=== PATIENT | male | born 1950 | race Caucasian/White ===

== ENCOUNTER 2017-07-25 08:38 | Day surgery (SDC) | payer MEDICARE, OTHER ==
[2017-07-18 15:29] VITALS: BMI 33.0
[~2017-07-25 08:38] MED LIST: ALPRAZolam 0.25 MG TAB PO PRN; ALPRAZolam 0.5 MG TAB PO PRN; ASPIRIN 325 MG TAB PO STA; ATORVASTATIN 80 MG TAB PO STA; SODIUM CHLORIDE 0.9% 1,000 ML in EMPTY BAG 1 BAG IV ONE
[2017-07-25 09:02] VITALS: TEMP 98
[2017-07-25] MEDS ORDERED: MIDAZOLAM 2 MG/2 ML VIAL IVP ONE (10:28)
[2017-07-25] MEDS ORDERED: LIDOCAINE 2% INJ 20 MG/ML SQ ONE (10:29)
[2017-07-25] MEDS: VERAPAMIL SYRINGE (5 MG/10 ML) INTRAARTER ONE ×2 (10:29→11:38)
[2017-07-25] MEDS ORDERED: LIDOCAINE 2% INJ 20 MG/ML (20 ML MDV) ONE (11:17)
[2017-07-25] MEDS ORDERED: HEPARIN SODIUM 1,000 UN/ML (10ML VL) ONE (11:17)
[2017-07-25] MEDS ORDERED: VERAPAMIL 2.5 MG/ML 2 ML AMP ONE (11:17)
[2017-07-25] MEDS ORDERED: MIDAZOLAM 2 MG/2 ML VIAL ONE (11:17)
[2017-07-25] MEDS ORDERED: IOPAMIDOL-370 125ML BTL INJ ONE (11:39)
[2017-07-25] MEDS ORDERED: RX INFO: IV CONTRAST WAS GIVEN 1 EACH MISC MISCELLANE PRN (11:43)
[2017-07-25] MEDS ORDERED: SODIUM CHLORIDE 0.9% 1,000 ML IV SCH (11:45)
--- NOTE | 2017-07-25 12:02 | LTR ---
DATE OF SERVICE: 07/25/2017 RE: Ye Reina Dear Dr. Noe; Mr. Ye Reina was experiencing intermittent episodes of chest discomfort concerning for angina. As you know, he has history of coronary artery disease and prior stenting of the mid LAD that was performed in 2001. He underwent heart catheterization and that revealed patent stent in the LAD without any significant residual coronary artery disease in the RCA or left circumflex. I want to thank you for allowing us to participate in his care and please do not hesitate to call if you have any question or concern. Sincerely, Marcin Brock MD MMNOMANL / WILMERN: [id number] /
--- NOTE | 2017-07-25 12:14 | CC ---
CARDIAC CATHETERIZATION REPORT DATE OF SERVICE: 07/25/2017 PERFORMING PHYSICIAN: Marcin Brock MD, Braider Tender. PROCEDURE PERFORMED: 1. Selective right and left coronary angiogram. 2. Left heart catheterization. INDICATION: This is a pleasant 66-year-old gentleman with known history of coronary artery disease and prior stenting of the LAD, who was experiencing intermittent episodes of chest discomfort concerning for angina. In view of that, heart catheterization was recommended. APPROACH: Right radial artery. COMPLICATION: None. LEVEL OF SEDATION: Moderate with sedation length of 13 minutes. PROCEDURE DESCRIPTION: After obtaining an informed consent, the patient was brought to the [facility]. The right radial artery was cannulated using micropuncture technique. The micropuncture wire passed easily, then I placed a 6-Thai sheath in the right radial artery. After that, I did selective right and left coronary angiogram using JR4 and JL3.5 catheters. After that I did left heart catheterization using 6-Thai pigtail catheter. The procedure was completed without any complication. SELECTIVE CORONARY ANGIOGRAM: 1. The right coronary artery is a medium caliber vessel and it is a dominant vessel. The RCA is angiographically normal. It bifurcates into PDA and PLV branches, both are angiographically normal. The left main is angiographically normal. It bifurcates into the left circumflex and left anterior descending artery. 2. The left circumflex is a large caliber vessel. It is a nondominant vessel with the proximal circ is angiographically normal. The mid circ is normal and gives rise into 2 obtuse marginal branches. The first OM branch is a medium caliber vessel, seems to be angiographically normal. The second OM branch is a large caliber vessel, seems to be angiographically normal and the circ continued after that as a small-caliber vessel in the AV groove. 3. The LAD, the proximal LAD is angiographically normal. The mid LAD is stented and the stent is patent. The LAD distally is angiographically normal. HEMODYNAMICS: The left ventricular end-diastolic pressure appeared to be 12 mmHg and no gradient was seen across the aortic valve. CONCLUSION: 1. Normal coronary angiogram. 2. Patent stent in the mid left anterior descending artery. POSTPROCEDURE MANAGEMENT: Maximize medical treatment and follow up with the patient. MMODL / IJN: [id number] /
[2017-07-25 13:08] VITALS: BP 111/59; PULSE 68; RESP 18
== END 2017-07-25 16:55 | disposition home or self-care (01) ==
LOC: CATHCVL 08:38
PROVIDERS: ATTEND Internal Medicine Interventional Cardiology
DX: R07.89 Other chest pain (principal); I25.10 Atherosclerotic heart disease of native coronary artery without angina pectoris; Z95.5 Presence of coronary angioplasty implant and graft; I10 Essential (primary) hypertension; E78.00 Pure hypercholesterolemia, unspecified; Z79.82 Long term (current) use of aspirin; Z79.899 Other long term (current) drug therapy; Z88.8 Allergy status to other drugs, medicaments and biological substances
CPT/HCPCS: 93458; C1894; J2001; J2250; J1644; Q9967

== ENCOUNTER → 2018-06-22 | Outpatient (CLI) | payer MEDICARE ==
--- NOTE | 2018-06-22 16:22 | MR ---
MRI CERVICAL SPINE: CLINICAL HISTORY: Cervicalgia and cervical disc disease per order. TECHNIQUE: Multiplanar, multisequence imaging of the cervical spine is performed without IV contrast. COMPARISON: MRI cervical spine January 04, 2013. FINDINGS: Sagittal images of the cervical spine show the craniocervical junction to remain within nor mal limits. The cervical and upper thoracic spinal cord remains normal in caliber and signal. There is stable grade 1 retrolisthesis of C5 on C6. The vertebral body heights remain normal. There is sta ble moderate disc space narrowing with mild to moderate anterior spurring C5-C6 and C6-C7 levels. The bone marrow signal intensity is within normal limits. Axial images at C2-C3 level show uncovertebral facet degenerative changes bilaterally causing mild-to -moderate bilateral neural foraminal narrowing. No significant change from prior. Axial images at C3-C4 level show uncovertebral facet degenerative changes bilaterally along with broa d-based right paracentral disc protrusion. There is effacement of the anterior thecal sac. There is m oderate to advanced bilateral neural foraminal narrowing at this level identified. No significant deloris nge from prior. Axial images at the C4-C5 level show uncovertebral facet degenerative changes bilaterally with right foraminal disc protrusion. There is moderate to advanced right-sided neural foraminal narrowing and m ild left-sided neural foraminal narrowing noted. No significant change from prior. Axial images at C5-C6 level show spondylolisthesis with uncovertebral facet degenerative changes and broad-based posterior spur disc complex, there is effacement of the anterior thecal sac and moderate to advanced left-sided neural foraminal narrowing, there is mild right-sided neural foraminal narrowi ng seen. Some progression from prior study noted. Axial images at C6-C7 level show broad-based posterior disc protrusion effacing anterior thecal sac a nd causing [id number] bilateral neural foraminal narrowing. Axial images at C7-T1 level are felt within normal limits. IMPRESSION: Multilevel degenerative changes as detailed above with some progression at C5-C6 level no alison from prior.
== END | disposition home or self-care (01) ==
LOC: RADMRIMAIN 15:32
PROVIDERS: ATTEND Orthopaedic Surgery Orthopaedic Surgery of the Spine
DX: M47.22 Other spondylosis with radiculopathy, cervical region (principal); R51 Headache
CPT/HCPCS: 72141

== ENCOUNTER → 2019-01-25 | Outpatient (CLI) | payer MEDICARE ==
--- NOTE | 2019-01-25 08:00 | MR ---
EXAMINATION TYPE: MR knee RT wo con DATE OF EXAM: 01/25/2019 COMPARISON: NONE HISTORY: Pain in right knee / Osteoarthritis TECHNIQUE: Multiplanar, multisequence images of the knee is performed without IV contrast. FINDINGS: MEDIAL MENISCUS: Anterior horn is intact without tear. Posterior horn is truncated diminished in size to anterior horn consistent with significant tear. Medial extrusion of medial meniscus coronal image 20. LATERAL MENISCUS: Anterior horn is intact without tear. Some oblique signal posterior horn appears to extend to the inferior articular surface sagittal image 25. Vertical increased signal appears to ext end to articular surface centrally. CRUCIATE LIGAMENTS: The posterior cruciate ligament is intact and unremarkable. Anterior cruciate lig ament shows marked increased signal but some fibers are intact on coronal images. COLLATERAL LIGAMENTS: The medial collateral ligament and lateral collateral ligament complex are inta ct and unremarkable. EXTENSOR MECHANISM: Visualized quadriceps and patellar tendons are intact. EFFUSION: Moderate size suprapatellar joint effusion. POPLITEAL CYST: No popliteal/cortez cyst. TRICOMPARTMENT SPACES: Moderate to severe narrowing with mild to moderate spurring patellofemoral com partment. Moderate narrowing and spurring medial and lateral tibiofemoral compartments most prominent medially. CARTILAGE: Chondromalacia patella with thinning of articular cartilage along posterior patellar pole fairly diffusely. Thinning and full-thickness cartilaginous loss medial tibiofemoral compartment. BONE MARROW SIGNAL: There is some heterogeneous increased T2 signal along the posterior aspect of the patellar pole. There is some heterogeneous diminished T1 and increased T2 signal medial tibial femor al compartment. OTHER: No additional significant abnormality is appreciated. IMPRESSION: 1. Moderate to severe tricompartment degenerative changes most prominent patellofemoral and medial ti biofemoral compartments as detailed above with areas of significant cartilaginous loss and reactive b aaron changes present. 2. Moderate-sized suprapatellar joint effusion. 3. Complex full-thickness tear posterior horn medial meniscus. 4. Oblique full-thickness tear suspected posterior horn lateral meniscus. Vertical tear central body lateral meniscus. 5. Myxoid degeneration/partial tear ACL. No full thickness tear evident.
== END | disposition home or self-care (01) ==
LOC: RADMRIMAIN 06:47
PROVIDERS: ATTEND Orthopaedic Surgery Orthopaedic Surgery of the Spine
DX: M17.11 Unilateral primary osteoarthritis, right knee (principal); S83.8X1A Sprain of other specified parts of right knee, initial encounter; M48.02 Spinal stenosis, cervical region; M50.322 Other cervical disc degeneration at C5-C6 level; M19.031 Primary osteoarthritis, right wrist; S63.501D Unspecified sprain of right wrist, subsequent encounter

== ENCOUNTER → 2019-06-25 | Outpatient (CLI) | payer MEDICARE ==
[2019-06-25 10:41] LABS: Appearance,Urine Clear (Clear); Bilirubin,Urine Negative (Negative); Blood,Urine Negative (Negative); Color,Urine Light Yellow; Glucose,Urine (UA) Negative (Negative); Ketones,Urine Negative (Negative); Leukocyte Esterase,Urine Negative (Negative); Nitrite,Urine Negative (Negative); Protein,Urine Negative (Negative); Specific Gravity,Urine 1.009 (1.001-1.035); Urobilinogen,Urine <2.0 mg/dL (<2.0)
[2019-06-25 10:54] LABS: ALT 20 U/L (4-49); AST 25 U/L (17-59); African American GFR (CKD) >90 (>60 ml/min/1.73 sqM); Albumin 4.5 g/dL (3.5-5.0); Alkaline Phosphatase 91 U/L (38-126); Anion Gap 12 mmol/L; Blood Urea Nitrogen 11 mg/dL (9-20); Calcium 9.5 mg/dL (8.4-10.2); Carbon Dioxide 24 mmol/L (22-30); Chloride 97 mmol/L (98-107); Glucose 94 mg/dL (74-99); Non-African American GFR(CKD) >90 (>60 ml/min/1.73 sqM); Partial Thromboplastin Time 24.1 sec (22.0-30.0); Potassium 4.8 mmol/L (3.5-5.1); Sodium 133 mmol/L (137-145); Total Protein 7.3 g/dL (6.3-8.2)
[2019-06-25 11:28] LABS: Basophils % (A) 1 %; Eosinophils # (A) 0.3 k/uL (0-0.7); Eosinophils % (A) 4 %; HGB 14.5 gm/dL (13.0-17.5); Lymphocytes # (A) 0.9 k/uL (1.0-4.8); Lymphocytes % (A) 12 %; MCH 32.2 pg (25.0-35.0); MCHC 33.8 g/dL (31.0-37.0); MCV 95.3 fL (80.0-100.0); Mean Platelet Volume 7.2; Monocytes # (A) 0.4 k/uL (0-1.0); Monocytes % (A) 6 %; Neutrophils # (A) 5.9 k/uL (1.3-7.7); Neutrophils % (A) 76 %; Platelet Count 224 k/uL (150-450); RBC 4.51 m/uL (4.30-5.90); RDW 12.9 % (11.5-15.5); WBC 7.7 k/uL (3.8-10.6)
== END | disposition home or self-care (01) ==
LOC: LABPAT 09:50
PROVIDERS: ATTEND Orthopaedic Surgery
DX: Z01.812 Encounter for preprocedural laboratory examination (principal); M16.11 Unilateral primary osteoarthritis, right hip; Z51.81 Encounter for therapeutic drug level monitoring
CPT/HCPCS: 80053; 81003; 85025; 85610; 85730; 87070

== ENCOUNTER 2019-07-06 09:58 | Day surgery (SDC) | payer MEDICARE ==
[2019-06-29 16:04] VITALS: BMI 33.7
[~2019-07-06 09:58] MED LIST changes: +ACETAMINOPHEN TAB 500 MG TAB PO ONE; -ALPRAZolam 0.25 MG TAB PO PRN; -ALPRAZolam 0.5 MG TAB PO PRN; -ASPIRIN 325 MG TAB PO STA; -ATORVASTATIN 80 MG TAB PO STA; +DEXAMETHASONE SOD PHOSPHATE 10 MG/ML 1 ML VIAL IV ONE; +GABAPENTIN 300 MG CAP PO ONE; +HYDROmorphone 0.5 MG/0.5 ML SYRINGE IVP PRN; +MELOXICAM 7.5 MG TAB PO ONE; +MIDAZOLAM 2 MG/2 ML VIAL IV PRN; +ONDANSETRON 4 MG/2 ML VIAL IVP ONE; +ROPIVACAINE 246.25 MG, EPINEPHrine 0.5 MG, KETOROLAC 30 MG, cloNIDine HCL/PF 80 MCG, WA... MISCELLANE ONE; -SODIUM CHLORIDE 0.9% 1,000 ML in EMPTY BAG 1 BAG IV ONE; +TRANEXAMIC ACID 1,000 MG in SODIUM CHLORIDE 0.9% 100 ML IVPB ONE
[2019-07-06] MEDS: LACTATED RINGERS 1,000 ML IV SCH ×2 (10:42→15:57)
[2019-07-06] MEDS ORDERED: MIDAZOLAM 2 MG/2 ML VIAL IV ONE (11:00)
[2019-07-06] MEDS ORDERED: fentaNYL (PF) 50 MCG/ML 2 ML AMP IV ONE (11:00)
[2019-07-06] MEDS ORDERED: SODIUM CHLORIDE 0.9% 100 ML BAG ONE (11:48)
[2019-07-06] MEDS ORDERED: PROPOFOL 10 MG/ML 20 ML VIAL IV ONE (11:48)
[2019-07-06] MEDS ORDERED: MIDAZOLAM 2 MG/2 ML VIAL ONE (11:48)
[2019-07-06] MEDS ORDERED: diphenhydrAMINE 50 MG/ML 1 ML VIAL ONE (11:48)
[2019-07-06] MEDS ORDERED: TRANEXAMIC ACID 1,000 MG/10 ML VIAL ONE (11:48)
[2019-07-06] MEDS ORDERED: fentaNYL (PF) 50 MCG/ML 2 ML AMP ONE (11:48)
[2019-07-06] MEDS ORDERED: KETAMINE 10 MG/ML 20 ML VIAL ONE (11:48)
[2019-07-06] MEDS ORDERED: LACTATED RINGERS 1,000 ML IV ONE (12:17)
[2019-07-06] MEDS ORDERED: ceFAZolin 3,000 MG in SODIUM CHLORIDE 0.9% IRRIGATIO 3,000 ML IRRIGATION ONE (12:17)
--- NOTE | 2019-07-06 13:04 | P.OP ---
Date of Procedure: 07/06/19 Preoperative Diagnosis: Severe osteoarthritis right knee Postoperative Diagnosis: Severe osteoarthritis right knee Procedure(s) Performed: Right total knee arthroplasty Implants: Gallegos [employer] Journey II CR Oxinium cruciate retaining femoral component size 8, right [employer] Journey right nonporous tibial baseplate size 7 [employer] Journey II, XLPE CR articular insert, size 9 mm, Size 7-8 right [employer] Journey BCS resurfacing oval patellar component, 32 mm All components were cemented using Palacos R bone cement.. The articulation is Oxinium on polyethylene. Anesthesia: spinal Surgeon: Mata Harper Test Engineer #1: Jelani Mejia Estimated Blood Loss (ml): 50 Pathology: other (Bone and cartilage) Condition: stable Disposition: PACU Indications for Procedure: After failure of conservative treatment we discussed the surgical and nonsurgical treatment options at length. Patient wishes to proceed with a total knee arthroplasty. Complications specific to this procedure were discussed at length, including but not limited to infection, bleeding, stiffness, and nerve injury. Patient is aware of all these complications and informed consent was obtained Operative Findings: The operative findings are consistent with severe osteoarthritis of the right knee Description of Procedure: Patient was seen in the preoperative area consent was reviewed and operative site was marked with a skin marker. An adductor canal pain catheter was placed by anesthesia in the preoperative area. Patient was then brought to the operating room and given preoperative antibiotics intravenously. A spinal anesthetic was administered by the anesthesia department. A tourniquet was placed on the upper thigh and the lower extremity was prepped and draped in usual sterile fashion. A gram of transexamic acid was given. A universal timeout was then performed which confirmed the patient's name, surgical site, ALLERGIES, and consent. The lower extremity was then exsanguinated and tourniquet was inflated to 250 mmHg. A standard and anterior midline approach to the knee was performed. The skin and subcutaneous tissue was dissected down to the patellar tendon. A medial parapatellar arthrotomy was then performed. The knee was then extended, the patellar was everted, and the knee was again flexed. The patellar fat pad was removed in order to enhance exposure. Anterior horns of both menisci were excised, and a release was performed to the posterior medial aspect of the knee. On gross visual inspection, there was complete loss of articular cartilage in the medial and patellofemoral joint spaces. There was also significant cartilage damage in the lateral compartment. There were multiple periarticular osteophytes which were then removed with a Ronguer. The femoral canal was then opened with the 9.5 mm intramedullary drill. The 8 mm intramedullary jasiel was then inserted into the femoral canal. The distal femoral cutting guide was then placed and set for 5 of valgus. The distal femoral cutting block was then pinned in place. The intramedullary jasiel was then removed, and the distal femur was then cut. The cutting block was then removed and the cut was checked for symmetry. Next, the sizing guide was then placed and set for 3 external rotation based off of the epicondylar axis and Whitesides line. Pins were then placed and the drill holes, and the femur was sized with the sizing stylus. The pins were then removed, and the sizing guide was then removed. The spikes of the femoral block was then placed into the predrilled holes, and malleted into place. Two 45 mm pins were then placed into the fixation holes on the cutting block. An yolette wing was then used to ensure there would be no notching with the anterior cut. The anterior condyles were cut without notching. The anterior cord cut was then performed, followed by the posterior cut, posterior chamfer cut, and the anterior chamfer cut. The collateral ligaments were protected during the entire process. The cutting block was then removed, and the femoral canal was plugged with autologous bone. Attention was then directed to the tibia. The remaining ACL was removed with a Ronguer, and the tibia was then gently subluxed forward with a large bent knee retractor. Any remaining menisci was excised. The posterior lateral corner was cauterized in order to cauterize the lateral geniculate artery. The extra medullary tibial cutting guide was then placed, set for the appropriate rotation, slope, and depth of resection. The proximal tibia cutting guide was then pinned in place. Proximal tibia was then cut and sized. Next trials were then placed with the appropriate-sized insert. The knee was able to fully extend and flex to 130 and was stable throughout all range of motion. The knee was then extended, patella everted. Patella was then measured, and then using an osteotomy guide, the patella was cut at the appropriate level. The patella was then measured and drilled and the patella trial was then placed. The knee was then taken through range of motion with the patella trial and the patella tracked normally. The knee was then extended patella trial was then removed and the patella was everted. Knee was then flexed and lug holes were drilled through the femoral trial and the femoral trial was then removed. The tibial was then exposed, and the tibial broach guide was then pinned in place after it was set for the appropriate rotation to allow for the most coverage without overhang. The tibia was then reamed and broached. The cut surfaces of bone were then irrigated with pulsatile lavage. The posterior structures were injected with the ropivacaine solution. The knee was also irrigated with Irrisept solution. The components were then opened, the cement was mixed, and the components were then cemented in place. The cement was allowed to harden with the knee in full extension. While the cement was hardening, the remaining soft tissues were then injected with a ropivacaine solution, which consisted of 246.25 mg of ropivacaine, 0.5 mg of epinephrine, 30 mg of Toradol, 80 g of clonidine, and 48.45 mL of sterile water, for a total of 100 mL of fluid injected. After the cemented hardened. The tourniquet was released, and hemostasis was obtained. A second gram of transexamic acid was given. The knee was again irrigated. The knee was again taken through range of motion and found to be stable throughout all range of motion of 0-130, and the patella tracked normally. The fascia was then closed with #2 strata fix suture. The subcutaneous tissue was closed with 3-0 Vicryl and 3-0 strata fix. Dermabond glue was used for the skin and placed with the knee in flexion. The patient was placed in a sterile silver dressing. Patient was then transferred to recovery room in stable condition. The assistant real estate manager MARIANO Anand was required due the complexity surgery and the need for a skilled salesperson surgical appliances. She assisted in positioning, draping, retraction, and closure of the wound.
[2019-07-06] MEDS ORDERED: HYDROmorphone 0.5 MG/0.5 ML SYRINGE IVP PRN ×2 (14:02)
[2019-07-06] MEDS ORDERED: NALOXONE 0.4 MG/ML 1 ML VIAL IV PRN (14:02)
[2019-07-06] MEDS ORDERED: ONDANSETRON 4 MG/2 ML VIAL IVP PRN (14:02)
[2019-07-06] MEDS ORDERED: hydrOXYzine PAMOATE 25 MG CAP PO PRN (14:02)
[2019-07-06] MEDS ORDERED: ROPIVACAINE 0.2%-NS ON-Q PUMP 1,090 MG, EMPTY PAIN BALL 1 EACH MISCELLANE PRN (14:16)
--- NOTE | 2019-07-06 14:32 | XR ---
EXAMINATION TYPE: XR knee limited RT DATE OF EXAM: 07/06/2019 CLINICAL HISTORY: Right knee pain and arthritis status post total knee replacement. TECHNIQUE: Portable AP and crosstable lateral views of the right knee are obtained immediately posto peratively. COMPARISON: None FINDINGS: Metallic hardware from total right knee arthroplasty is seen and appears satisfactory in a lignment and position. There is evidence of recent surgery with diffuse subcutaneous gas and soft ti ssue swelling noted. IMPRESSION: METALLIC HARDWARE FROM TOTAL RIGHT KNEE ARTHROPLASTY IS SATISFACTORY IN ALIGNMENT.
--- NOTE | 2019-07-06 15:36 | P.ANPRN ---
Procedure Note - Anesthesia - Nerve Block Performed Right Adductor Canal Infusion Time Out Performed: Yes (1059) Date of Procedure: 07/06/19 Procedure Start Time: 10:59 Procedure Stop Time: 11:06 Location of Patient: PreOp Indication: Acute Post-Operative Pain, Requested by Surgeon Specifically requested for management of pain by DrGriselda: Mata Harper Sedation Type: Sedate with meaningful contact maintained Preparation: Sterile Prep Position: Supine Catheter Depth at Skin (cm): 9 Catheter: Indwelling Needle Types: Pajunk Needle Gauge: 18 Ultrasound used to visualize needle placement: Yes Ultrasound used to observe medication spread: Yes Injectate: 0.5% Ropivacaine (see comment for volume) (20cc) Blood Aspirated: No Pain Paresthesia on Injection Noted: No Resistance on Injection: Normal Image Stored and Saved: Yes Events: Uneventful and Well Tolerated
[2019-07-06] MEDS: HYDROmorphone 0.5 MG/0.5 ML SYRINGE IVP PRN ×2 (16:00→19:47)
[2019-07-06] MEDS: HYDROcodone/APAP 5-325MG 1 EACH TAB PO PRN (17:27)
[2019-07-06] MEDS: ASPIRIN 325 MG TAB PO SCH (20:48)
[2019-07-06] MEDS ORDERED: SENNOSIDES-DOCUSATE SODIUM 1 EACH TAB PO SCH (21:00)
[2019-07-07] MEDS: HYDROmorphone 0.5 MG/0.5 ML SYRINGE IVP PRN (02:40)
[2019-07-07] MEDS: LACTATED RINGERS 1,000 ML IV SCH ×3 (02:40→07:05)
[2019-07-07] MEDS: HYDROcodone/APAP 5-325MG 1 EACH TAB PO PRN ×2 (06:19→12:14)
[2019-07-07] MEDS: ASPIRIN 325 MG TAB PO SCH (07:08)
[2019-07-07 07:24] LABS: Basophils % (A) 0 %; Eosinophils % (A) 0 %; HGB 11.7 gm/dL (13.0-17.5); Lymphocytes # (A) 0.8 k/uL (1.0-4.8); Lymphocytes % (A) 7 %; MCH 31.7 pg (25.0-35.0); MCHC 32.4 g/dL (31.0-37.0); MCV 97.8 fL (80.0-100.0); Mean Platelet Volume 7.5; Monocytes # (A) 0.6 k/uL (0-1.0); Monocytes % (A) 5 %; Neutrophils # (A) 9.9 k/uL (1.3-7.7); Neutrophils % (A) 86 %; Platelet Count 182 k/uL (150-450); RBC 3.68 m/uL (4.30-5.90); RDW 12.8 % (11.5-15.5); WBC 11.5 k/uL (3.8-10.6)
[2019-07-07 08:25] VITALS: BP 161/92; PULSE 70; RESP 18; TEMP 98
--- NOTE | 2019-07-07 09:03 | P.DS ---
Providers Attending physician: Mata Harper Primary care physician: [facility] Course: This is a []-year-old [] who was last seen with complaint of continued right knee pain. The patient has a known history of degenerative arthritis of the right knee and presents to discuss surgical options. After discussion and consideration the patient elects to proceed with total right knee arthroplasty. The patient is seen preoperatively by [] and cleared for surgery. The patient is admitted to [facility] for total right knee arthroplasty. The procedures performed without complication or sequelae. Patient is doing well postoperatively. Vital signs are stable at discharge. Labs are stable at discharge. the patient is ambulating well with walker with minimal assistance. The patient is discharged to home on postop day #[] pending medical clearance. Please see orders and refer to the [facility] rec for accurate list of medications. Patient Condition at Discharge: Fair Plan - Discharge Summary Discharge Rx Participant: No New Discharge Prescriptions: New Rivaroxaban [Xarelto] 10 mg PO DAILY 35 Days #35 tab Hydrocodone/Acetaminophen [Elgin 5-325] 1 - 2 tab PO Q6H PRN #40 tab PRN Reason: Pain No Action Metoprolol Tartrate 25 mg PO BID amLODIPine [Norvasc] 5 mg PO DAILY Triamterene/Hydrochlorothiazid [Maxzide 37.5-25] 1 tab PO DAILY Lisinopril [Prinivil] 20 mg PO DAILY Atorvastatin [Lipitor] 40 mg PO DAILY Sertraline [Zoloft] 200 mg PO DAILY LORazepam [Ativan] 1 mg PO TID clonazePAM [KlonoPIN] 0.5 mg PO HS Gabapentin [Neurontin] 300 mg PO BID Aspirin [Adult Low Dose Aspirin EC] 81 mg PO DAILY Discharge Medication List Atorvastatin [Lipitor] 40 mg PO DAILY 01/05/15 [History] LORazepam [Ativan] 1 mg PO TID 01/05/15 [History] Lisinopril [Prinivil] 20 mg PO DAILY 01/05/15 [History] Metoprolol Tartrate 25 mg PO BID 01/05/15 [History] Sertraline [Zoloft] 200 mg PO DAILY 01/05/15 [History] Triamterene/Hydrochlorothiazid [Maxzide 37.5-25] 1 tab PO DAILY 01/05/15 [History] amLODIPine [Norvasc] 5 mg PO DAILY 01/05/15 [History] Aspirin [Adult Low Dose Aspirin EC] 81 mg PO DAILY 06/29/19 [History] Gabapentin [Neurontin] 300 mg PO BID 06/29/19 [History] clonazePAM [KlonoPIN] 0.5 mg PO HS 06/29/19 [History] Hydrocodone/Acetaminophen [Elgin 5-325] 1 - 2 tab PO Q6H PRN #40 tab 07/07/19 [Rx] Rivaroxaban [Xarelto] 10 mg PO DAILY 35 Days #35 tab 07/07/19 [Rx] Follow up Appointment(s)/Referral(s): Juan Francisco Noe MD [Primary Care Provider] - 1 Week Mata Harper DO [Doctor of Osteopathic Medicine] - 07/21/19 9:45 am Activity/Diet/Wound Care/Special Instructions: Weight-bear as tolerated on your operative leg. Use a walker for ambulation. Keep Optifoam dressing in place for 7-10 days. May shower over dressing. Take pain medications as prescribed. Xarelto for DVT prophylaxis due to history of pulmonary embolism. Follow-up with Dr. Harper in the office in two weeks. Call the office with any questions or concerns, Discharge Disposition: HOME WITH HOME HEALTH SERVICES
--- NOTE | 2019-07-07 11:21 | P.PN ---
Progress Note - Text Progress Note Date: 07/07/19 Postoperative day # 1 status post total knee arthroplasty, on adductor canal perineural catheter placed for postoperative analgesia. Ropivacaine 0.2% 10 mL per hour through ON-Q pump continuous infusion. Pain is well controlled. On visual analog scale 3/10 Patient is taking PRN oral pain medications. Catheter site: Looks Ok. There is no erythema or tenderness. Continue with the current pain management plan and will follow.
== END 2019-07-07 13:06 | disposition home health service (06) ==
LOC: OR 09:58 → 4SSUR 14:40 → OR 07-07 13:06
PROVIDERS: ATTEND Orthopaedic Surgery
DX: M17.11 Unilateral primary osteoarthritis, right knee (principal); I25.10 Atherosclerotic heart disease of native coronary artery without angina pectoris; I10 Essential (primary) hypertension; E78.5 Hyperlipidemia, unspecified; G43.909 Migraine, unspecified, not intractable, without status migrainosus; Z79.82 Long term (current) use of aspirin; Z98.890 Other specified postprocedural states; Z79.899 Other long term (current) drug therapy; Z87.11 Personal history of peptic ulcer disease; Z86.711 Personal history of pulmonary embolism; Z86.73 Personal history of transient ischemic attack (TIA), and cerebral infarction without residual deficits; Z88.8 Allergy status to other drugs, medicaments and biological substances; Z95.5 Presence of coronary angioplasty implant and graft
CPT/HCPCS: 97161; 64448; 76942; 85025; 88300; 73560; 27447; C1713; C1776; J2250; J0171; J1100; J0690 ×3; J2405; J3010; J1885; J2795 ×2; J0735; J1170 ×2

== ENCOUNTER → 2022-08-16 | Outpatient (CLI) | payer MEDICARE ==
[2022-08-16 09:47] LABS: Partial Thromboplastin Time 25.1 sec (22.0-30.0); Prothrombin Time 10.5 sec (9.0-12.0)
[2022-08-16 15:44] LABS: HCT 36.3 % (39.6-50.0); MCH 31.1 pg (27.0-32.0); MCHC 33.1 g/dL (32.0-37.0); Mean Platelet Volume 9.9 fL (9.5-12.2); NRBC Per 100 WBC 0 /100 WBCS (0.0-0.0); Platelet Count 212 X 10*3/uL (140-440); RBC 3.86 X 10*6/uL (4.40-5.60); RDW 12.9 % (11.5-14.5); WBC 6.76 X 10*3/uL (4.50-10.00)
[2022-08-16 16:03] LABS: African American GFR (CKD) 87.4 (60.0-200.0); Albumin 4.5 g/dL (3.8-4.9); Albumin/Globulin Ratio 2.14 (1.60-3.17); Anion Gap 12.8 mmol/L (10.00-18.00); Calcium 10.1 mg/dL (8.7-10.3); Carbon Dioxide 22.2 mmol/L (20.0-27.5); Globulin 2.1 g/dL (1.6-3.3); Non-African American GFR(CKD) 75.4 (60.0-200.0); Potassium 4.5 mmol/L (3.5-5.5); Total Bilirubin 0.4 mg/dL (0.30-1.20); Total Protein 6.6 g/dL (6.2-8.2)
[2022-08-16 17:57] LABS: Appearance,Urine Clear (Clear); Bilirubin,Urine Negative (Negative); Blood,Urine Negative (Negative); Color,Urine Yellow (Yellow); Ketones,Urine Negative (Negative); Nitrite,Urine Negative (Negative); Specific Gravity,Urine 1.021 (1.001-1.030); Urobilinogen,Urine 0.2 (0.2,1.0)
== END | disposition home or self-care (01) ==
LOC: LABPAT 08:50
PROVIDERS: ATTEND Orthopaedic Surgery
DX: Z01.812 Encounter for preprocedural laboratory examination (principal)
CPT/HCPCS: 80053; 81003; 85027; 85610; 85730; 87070

== ENCOUNTER 2022-08-27 05:36 | Observation (INO) | payer MEDICARE ==
[2022-08-23 11:11] VITALS: BMI 30.8
[~2022-08-27 05:36] MED LIST changes: -ACETAMINOPHEN TAB 500 MG TAB PO ONE; +ACETAMINOPHEN TAB 500 MG TAB PO PRN; -DEXAMETHASONE SOD PHOSPHATE 10 MG/ML 1 ML VIAL IV ONE; -GABAPENTIN 300 MG CAP PO ONE; +GABAPENTIN 300 MG CAP PO PRN; -HYDROmorphone 0.5 MG/0.5 ML SYRINGE IVP PRN; -MELOXICAM 7.5 MG TAB PO ONE; +MELOXICAM 7.5 MG TAB PO PRN; -MIDAZOLAM 2 MG/2 ML VIAL IV PRN; -ONDANSETRON 4 MG/2 ML VIAL IVP ONE; -ROPIVACAINE 246.25 MG, EPINEPHrine 0.5 MG, KETOROLAC 30 MG, cloNIDine HCL/PF 80 MCG, WA... MISCELLANE ONE; -TRANEXAMIC ACID 1,000 MG in SODIUM CHLORIDE 0.9% 100 ML IVPB ONE; +TRANEXAMIC ACID IN NACL,ISO-OS 1,000 MG in SALINE 1 100ML.BAG IVPB PRN
[2022-08-27] MEDS ORDERED: LIDOCAINE 1% (10MG/ML) FOR IV START INTRADERMA PRN (05:41)
[2022-08-27] MEDS ORDERED: DEXAMETHASONE SOD PHOSPHATE 4 MG/ML 1 ML VIAL IV ONE (05:41)
[2022-08-27] MEDS ORDERED: MIDAZOLAM 2 MG/2 ML VIAL IV PRN (05:41)
[2022-08-27] MEDS ORDERED: ONDANSETRON 4 MG/2 ML VIAL IVP ONE (05:41)
[2022-08-27] MEDS: LACTATED RINGERS 1,000 ML IV SCH (06:14)
[2022-08-27] MEDS ORDERED: fentaNYL (PF) 50 MCG/ML 2 ML AMP ONE (06:59)
[2022-08-27] MEDS ORDERED: ePHEDrine 50 MG/ML 1 ML VIAL ONE (06:59)
[2022-08-27] MEDS ORDERED: ROPIVACAINE 5 MG/ML 30 ML VIAL ONE (06:59)
[2022-08-27] MEDS ORDERED: KETAMINE 10 MG/ML 20 ML VIAL ONE (06:59)
[2022-08-27] MEDS ORDERED: TRANEXAMIC ACID IN NACL,ISO-OS 1,000 MG/100 ML BAG ONE (06:59)
[2022-08-27] MEDS ORDERED: MIDAZOLAM 2 MG/2 ML VIAL ONE (06:59)
[2022-08-27] MEDS ORDERED: ceFAZolin 1,000 MG in SODIUM CHLORIDE 0.9% 1,000 ML IRRIGATION ONE (06:59)
[2022-08-27] MEDS ORDERED: PROPOFOL 10 MG/ML 20 ML VIAL IV ONE (06:59)
[2022-08-27] MEDS ORDERED: HYDROmorphone 0.5 MG/0.5 ML SYRINGE IVP PRN ×3 (07:00→07:04)
[2022-08-27] MEDS ORDERED: MAGNESIUM HYDROXIDE 2,400 MG/10 ML CUP PO PRN (07:04)
[2022-08-27] MEDS ORDERED: ONDANSETRON 4 MG/2 ML VIAL IVP PRN (07:04)
[2022-08-27] MEDS ORDERED: NALOXONE 0.4 MG/ML 1 ML VIAL IV PRN (07:04)
[2022-08-27] MEDS ORDERED: HYDROcodone/APAP 7.5-325MG 1 EACH TAB PO PRN (07:06)
[2022-08-27] MEDS ORDERED: ROPIVACAINE 5 MG/ML 30 ML VIAL MISCELLANE ONE ×2 (07:29→08:11)
[2022-08-27] MEDS ORDERED: LACTATED RINGERS 1,000 ML IV ONE (07:53)
--- NOTE | 2022-08-27 08:21 | P.OP ---
Date of Procedure: 08/27/22 Preoperative Diagnosis: Severe osteoarthritis right hip Postoperative Diagnosis: Severe osteoarthritis right hip Procedure(s) Performed: Right total hip arthroplasty direct anterior approach Implants: [employer] Polarstem standard size 8 with a collar [employer] R3, 3 hole hemispherical acetabular shell, 56 mm [employer] Reflection 6.5 mm cancellus screw, 20 mm, 25 mm [employer] R3, XLPE 20 acetabular liner [employer] Oxinium femoral head 36 m, +8 All components were press-fit. The articulation is Oxinium on polyethylene. Anesthesia: spinal Surgeon: Mata Harper Pony Trimmer #1: Karen Cope Estimated Blood Loss (ml): 650 Pathology: other (Femoral head) Condition: stable Disposition: PACU Indications for Procedure: After failure of conservative treatment we discussed the surgical and nonsurgical treatment options at length. Patient wishes to proceed with a total hip arthroplasty with a direct anterior approach. Complications specific to this procedure were discussed at length, including but not limited to infection, leg length discrepancy, dislocation, nerve injury, and fracture. Covid-19 was also discussed at length with the patient, and they are aware of the current sara icies and procedures. The patient was given the option of delaying surgery, but they elect to proceed knowing these risks. Patient is aware of all these complications and informed consent was obtained Operative Findings: The operative findings are consistent with severe osteoarthritis of the right hip Description of Procedure: The patient was seen and evaluated in the preoperative area and the consent was reviewed. The operative site was marked with a skin marker. The patient verified the procedure and operative site. A CHAMP block was placed by anesthesia in the preoperative area. The patient was then brought to the operating room and given preoperative antibiotics intravenously. 1 g of Tranexamic acid was also given intravenously. A spinal anesthetic was administered by the anesthesia department. The patient was then placed on the [place] table with the bony prominences well-padded. The hip area was then prepped with a ChloraPrep solution and draped in the usual sterile fashion. A universal timeout was then performed, which confirmed the patient's name, surgical site, ALLERGIES, and procedure being performed on the consent. Next the incision site was located at 1 cm distal and 4 cm lateral to the anterior superior iliac spine. The skin and subcutaneous tissues were sharply incised. Incision was carefully dissected down to the fascia overlying the tensor fascia carolann muscle. This fascia was then incised in line with the muscle fibers. Care was taken to stay laterally in order to avoid injuring the lateral femoral cutaneous nerve. Next, using blunt finger dissection, the tensor fascia carolann muscle was dissected off its investing fascia. The muscle was then carefully retracted laterally with a cobra retractor over the lateral neck of the femur. Next, the circumflex vessels were identified and cauterized using the Aquamantis device. The anterior hip capsule was then exposed. The capsule was then opened and an inverted T fashion. The retractors were then placed intracapsularly. The retractors were maintained intracapsular throughout the procedure. The proximal femur was then visualized. Fluoroscopic x-rays were then taken in order to evaluate the preoperative leg lengths. A small amount of traction was placed on the leg. The femoral neck was then osteotomized at the appropriate level above the lesser trochanter. A small wedge of bone was then removed from the remaining femoral head. Next, using a corkscrew the femoral head was removed from the acetabulum. On gross visual inspection, the femoral head had complete loss of articular cartilage and multiple periarticular osteophytes. The femoral head was then measured. Attention was then turned to the acetabulum. The acetabulum was exposed and any remaining labrum was excised. Sequential reaming of the acetabulum was performed using fluoroscopic guidance until there was a good bed of bleeding cancellus bone. When the appropriate size was reached, a trial was then placed. The position and fit of the trial was checked with fluoroscopy. The trial was then removed. Then, using fluoroscopic guidance, the final implant was impacted at 20 of anteversion and 40 of abduction, and fully seated in the acetabulum. 2 screws were then placed in the acetabulum. Again fluoroscopy was used to check position of the screws. Next, the liner was then impacted, with a 20 elevated liner located in the anterior superior quadrant. Component locking was confirmed. Attention was then directed to the femur. With the aid of the [place] table, the femur was externally rotated to approximately 130, extended, and adducted under the opposite leg. A side hook was then placed under the proximal femur, and the side hook elevator was used to elevate the proximal femur while releasing the capsule. Retractors were then placed. A capsular release was performed, as well as a release of the conjoined tendon, which afforded excellent visualization of the proximal femur. Next, a box osteotome was used to lateralize the proximal femur. A cutter hand was then used to locate the femoral canal. Sequential broaching was then performed with appropriate size which afforded excellent fixation in the proximal femur. A trial was then placed with appropriate head and neck, and the hip was gently reduced with the aid of the [place] table. Fluoroscopy was then used to check position of the components, as well as to evaluate the leg lengths and offset. The leg lengths and offset were measured as closely as possible to ensure stability of the hip. The hip was then gently dislocated and the trials were then removed. Final implants were then impacted and the hip was again reduced. Final fluoroscopic x-rays confirmed that the components were in anatomic position. The leg lengths and offset were measured and were found to coincide with the trial measurements. The hip was also taken through range of motion, and found to be stable. The hip was then copiously irrigated with antibiotic solution with pulsatile lavage. The hip was then irrigated with Irrisept solution. The soft tissues were then injected with a ropivacaine solution. A second dose of 1 g of Tranexamic acid was also given intravenously. The fascia was then closed with 2-0 strata fix suture. The subcutaneous tissue was closed with 3-0 Vicryl. The subcuticular tissue was closed with 3-0 strata fix suture. The skin was then closed with Exofin skin glue. After the glue and dried, and Optifoam silver impregnated dressing was applied. The patient was then transferred to the recovery room in stable condition. The prosthetics assistant MARIANO Vaughan was required due to the complexity of surgery, and the need for skilled promotions assistant sales marketing for positioning, draping, exposure, retraction, and closure of the wound.
--- NOTE | 2022-08-27 08:30 | XR ---
EXAMINATION TYPE: XR Hip Limited RT DATE OF EXAM: 08/27/2022 COMPARISON: NONE HISTORY: Postop TECHNIQUE: 5 view submitted. FINDINGS: There is postsurgical change in near anatomic alignment. There is soft tissue edema and emphysema. IMPRESSION: 1. Postoperative change. Appears in near-anatomic alignment.
--- NOTE | 2022-08-27 08:30 | FL ---
EXAMINATION TYPE: FL guidance operating room DATE OF EXAM: 08/27/2022 HISTORY: Fluoroscopy time Total dose area product (DAP) in mGy*cm? (or similar): 3.6340 IMPRESSION: 1. Fluoroscopy time.
--- NOTE | 2022-08-27 09:02 | XR ---
EXAMINATION TYPE: XR Hip Limited RT DATE OF EXAM: 08/27/2022 COMPARISON: NONE HISTORY: Postop TECHNIQUE: One view submitted. FINDINGS: There is postsurgical change in near anatomic alignment. There is soft tissue edema and emphysema. IMPRESSION: 1. Postoperative change. Appears in near-anatomic alignment.
[2022-08-27] MEDS: SODIUM CHLORIDE 0.9% 1,000 ML IV SCH ×2 (09:45→15:11)
[2022-08-27] MEDS ORDERED: BACLOFEN 10 MG TAB PO PRN (12:26)
[2022-08-27] MEDS: HYDROcodone/APAP 7.5-325MG 1 EACH TAB PO PRN (12:43)
--- NOTE | 2022-08-27 14:20 | CONS ---
CONSULTATION REASON FOR CONSULTATION: Advice regarding seizure disorder, multiple medical issues requested by Orthopedic Surgery. HISTORY OF PRESENT ILLNESS: This is a 72-year-old gentleman with a past medical history of CAD, hypertension, history of pulmonary embolism, underwent right total hip joint arthroplasty. The patient is being closely monitored. There is no history of any fever, rigors, chills, or shortness of breath at this time. PAST MEDICAL HISTORY: History of CAD, hypertension, hyperlipidemia, and history of DJD. MEDICATIONS: Prior to admission, aspirin, rest of the medications and rest of chart is also reviewed. ALLERGIES: Nitroglycerin. FAMILY HISTORY: No history of heart disease or strokes in the family. SOCIAL HISTORY: Occasional alcohol. REVIEW OF SYSTEMS: A 14-point review is negative except as mentioned earlier. PHYSICAL EXAMINATION: VITAL SIGNS: Pulse is 62, blood pressure 120/76, respirations 18. HEENT: Conjunctivae normal. NECK: No jugular venous distention. CARDIOVASCULAR: S1, S2 muffled. RESPIRATIONS: Diminished at the bases, few scattered rhonchi, no crackles. ABDOMEN: Soft, nontender. LEGS: Status post surgery. LABS: The previous labs available in the chart reviewed. No current labs are available. ASSESSMENT: 1. Status post right total hip joint arthroplasty. 2. History of CAD. 3. Hypertension. 4. Hyperlipidemia. 5. History of pulmonary embolism. 6. History of seizure disorder. 7. History of CAD, stent. RECOMMENDATIONS AND DISCUSSION: This 72-year-old gentleman presented with multiple complex medical issues, we will monitor the patient closely. Continue the current medications, continue symptomatic treatment. Otherwise, DVT prophylaxis. Resume the home medications once they are confirmed. We will closely monitor. Further recommendations to follow. MMODL / IJN: [id number] /
[2022-08-27] MEDS: HYDROmorphone 0.5 MG/0.5 ML SYRINGE IVP PRN ×2 (15:05→19:45)
[2022-08-27] MEDS: SERTRALINE 50 MG TAB PO SCH (19:46)
[2022-08-27] MEDS: GABAPENTIN 300 MG CAP PO SCH (19:46)
[2022-08-27] MEDS ORDERED: SENNOSIDES-DOCUSATE SODIUM 1 EACH TAB PO SCH (21:00)
[2022-08-27] MEDS ORDERED: ASPIRIN 325 MG TAB PO SCH (21:00)
[2022-08-27] MEDS ORDERED: MELATONIN 5 MG TABLET PO SCH (21:30)
--- NOTE | 2022-08-27 22:27 | P.ANPRN ---
Procedure Note - Anesthesia - Nerve Block Performed Right Hardik Single Time Out Performed: Yes Date of Procedure: 08/27/22 Procedure Start Time: 06:15 Procedure Stop Time: 06:20 Location of Patient: PreOp Indication: Acute Post-Operative Pain Sedation Type: Sedate with meaningful contact maintained Preparation: Sterile Prep Position: Supine Needle Types: Pajunk Needle Gauge: 21 Ultrasound used to visualize needle placement: Yes Ultrasound used to observe medication spread: Yes Injectate: 0.5% Ropivacaine (see comment for volume) (30) Blood Aspirated: No Pain Paresthesia on Injection Noted: No Resistance on Injection: Normal Image Stored and Saved: Yes Events: Uneventful and Well Tolerated
[2022-08-28] MEDS: HYDROmorphone 0.5 MG/0.5 ML SYRINGE IVP PRN ×2 (00:14→06:23)
[2022-08-28] MEDS: LACTATED RINGERS 1,000 ML IV SCH (06:31)
[2022-08-28 07:23] VITALS: RESP 16
--- NOTE | 2022-08-28 07:40 | P.DS ---
Providers Expected date of discharge: 08/28/22 Attending physician: Mata Harper Consults: 08/27/22 07:04 Consult Physician Routine Consulting Provider: Naila Bowen Consult Reason/Comments: medical management Do you want consulting provider notified?: Yes Primary care physician: Juan Francisco Noe - Discharge Diagnosis(es) (1) Primary localized osteoarthritis of right hip Current Visit: Yes Status: Acute (2) Status post total hip replacement, right Current Visit: Yes Status: Acute Hospital Course: This is a 72-year-old male with known history of degenerative arthritis of the right hip. The patient presents for evaluation. After discussion and c onsideration patient elects to proceed with total hip arthroplasty with direct anterior approach. The patient is seen preoperatively by primary care physician and cleared for surgery. Patient is admitted to [facility] on 08/27/2022 for total hip arthroplasty with direct anterior approach. The procedure is performed without complication or sequelae. The patient is doing well postoperatively. Labs and vital signs are stable on day of discharge. On day of discharge patient's hip incision is healing well. There is minimal erythema. There is no drainage noted at this time. There is minimal soft tissue swelling to the hip and thigh. Patient has full foot and ankle motion without difficulty or pain. Neurovascular status to the lower extremity is intact. Patient is discharged to home in good condition. Please see med rec for accurate list of home medications. Plan - Discharge Summary Discharge Rx Participant: Yes New Discharge Prescriptions: New Rivaroxaban [Xarelto] 10 mg PO DAILY #35 tab HYDROcodone/APAP 7.5-325MG [Hood 7.5-325] 1 - 2 tab PO Q6H PRN #32 tab PRN Reason: Pain Sennosides [Senokot] 2 tab PO DAILY PRN #60 tablet PRN Reason: Constipation No Action amLODIPine [Norvasc] 5 mg PO DAILY Triamterene/Hydrochlorothiazid [Maxzide 37.5-25] 1 tab PO DAILY lisinopriL [Prinivil] 20 mg PO DAILY Atorvastatin [Lipitor] 40 mg PO DAILY Gabapentin [Neurontin] 300 mg PO BID Aspirin [Adult Low Dose Aspirin EC] 81 mg PO DAILY Sertraline [Zoloft] 50 mg PO BID Cholecalciferol [Vitamin D3 (125 Mcg = 5000 Iu)] 125 mcg PO DAILY Celecoxib [CeleBREX] 200 mg PO DAILY Baclofen 10 mg PO BID PRN PRN Reason: MUSCLE RELAXER Discharge Medication List Atorvastatin [Lipitor] 40 mg PO DAILY 01/05/15 [History] Triamterene/Hydrochlorothiazid [Maxzide 37.5-25] 1 tab PO DAILY 01/05/15 [History] amLODIPine [Norvasc] 5 mg PO DAILY 01/05/15 [History] lisinopriL [Prinivil] 20 mg PO DAILY 01/05/15 [History] Aspirin [Adult Low Dose Aspirin EC] 81 mg PO DAILY 06/29/19 [History] Gabapentin [Neurontin] 300 mg PO BID 06/29/19 [History] Baclofen 10 mg PO BID PRN 08/23/22 [History] Celecoxib [CeleBREX] 200 mg PO DAILY 08/23/22 [History] Cholecalciferol [Vitamin D3 (125 Mcg = 5000 Iu)] 125 mcg PO DAILY 08/23/22 [History] Sertraline [Zoloft] 50 mg PO BID 08/23/22 [History] HYDROcodone/APAP 7.5-325MG [Hood 7.5-325] 1 - 2 tab PO Q6H PRN #32 tab 08/27/22 [Rx] Rivaroxaban [Xarelto] 10 mg PO DAILY #35 tab 08/27/22 [Rx] Sennosides [Senokot] 2 tab PO DAILY PRN #60 tablet 08/27/22 [Rx] Follow up Appointment(s)/Referral(s): Mata Harper DO [Doctor of Osteopathic Medicine] - 2 Weeks Activity/Diet/Wound Care/Special Instructions: Weightbearing as tolerated with walker. Leave dressing intact. Dressing may be removed by home care nurse or by patient in 7 days. Then change dressing twice daily until follow up. May shower with initial dressing intact and after removal. If dressing become saturated, please remove. Please take aspirin 325mg twice daily for 30 days to prevent blood clots. Recommend use of compression stockings daily until follow up to help prevent swelling and blood clots. May remove at night before sleeping. Please follow-up with [facility] in 2 weeks and call with any questions or concerns, . Discharge Disposition: HOME WITH HOME HEALTH SERVICES
[2022-08-28] MEDS: GABAPENTIN 300 MG CAP PO SCH (08:29)
[2022-08-28] MEDS: HYDROcodone/APAP 7.5-325MG 1 EACH TAB PO PRN ×2 (08:29→14:03)
[2022-08-28] MEDS: SERTRALINE 50 MG TAB PO SCH (08:29)
[2022-08-28] MEDS ORDERED: lisinopriL 20 MG TAB PO SCH (09:00)
[2022-08-28] MEDS ORDERED: TRIAMTERENE-HCTZ 37.5-25MG 1 EACH TAB PO SCH (09:00)
[2022-08-28] MEDS ORDERED: RIVAROXABAN 10 MG TAB PO SCH (09:00)
[2022-08-28] MEDS ORDERED: ATORVASTATIN 40 MG TAB PO SCH (09:00)
[2022-08-28] MEDS ORDERED: CHOLECALCIFEROL 125 MCG (5000 IU) TABLET PO SCH (09:00)
[2022-08-28] MEDS ORDERED: ASPIRIN 81 MG PO SCH (09:00)
[2022-08-28] MEDS ORDERED: amLODIPine 5 MG TAB PO SCH (09:00)
[2022-08-28 09:24] LABS: African American GFR (CKD) 98.5 (60.0-200.0); Anion Gap 8.6 mmol/L (10.00-18.00); Blood Urea Nitrogen 13.5 mg/dL (9.0-27.0); Calcium 8.8 mg/dL (8.7-10.3); Carbon Dioxide 24.4 mmol/L (20.0-27.5); Potassium 3.9 mmol/L (3.5-5.5)
[2022-08-28] MEDS ORDERED: SODIUM CHLORIDE 0.9% 500 ML 500 ML IV ONE (09:54)
[2022-08-28 10:45] LABS: Basophils % (A) 0 %; Eosinophils % (A) 1 %; HCT 30.9 % (39.0-53.0); HGB 9.9 gm/dL (13.0-17.5); Lymphocytes # (A) 0.5 k/uL (1.0-4.8); Lymphocytes % (A) 8 %; MCH 30.9 pg (25.0-35.0); MCHC 32.1 g/dL (31.0-37.0); MCV 96.2 fL (80.0-100.0); Mean Platelet Volume 7.8; Monocytes # (A) 0.5 k/uL (0-1.0); Monocytes % (A) 7 %; Neutrophils # (A) 5.5 k/uL (1.3-7.7); Neutrophils % (A) 83 %; Platelet Count 191 k/uL (150-450); RBC 3.21 m/uL (4.30-5.90); RDW 13.3 % (11.5-15.5); WBC 6.7 k/uL (3.8-10.6)
[2022-08-28 11:42] LABS: Basophils # (A) 0.02 X 10*3/uL (0.00-0.10); Basophils % (A) 0.3 %; Eosinophils # (A) 0.02 X 10*3/uL (0.04-0.35); Eosinophils % (A) 0.3 %; HCT 27.5 % (39.6-50.0); HGB 8.7 g/dL (13.0-17.0); Immature Grans, Automated 0.4 %; Lymphocytes % (A) 10.2 %; MCH 30.1 pg (27.0-32.0); MCHC 31.6 g/dL (32.0-37.0); MCV 95.2 fL (80.0-97.0); Mean Platelet Volume 10.7 fL (9.5-12.2); Monocytes # (A) 0.71 X 10*3/uL (0.20-1.00); Monocytes % (A) 10.4 %; NRBC Per 100 WBC 0 /100 WBCS (0.0-0.0); Neutrophils # (A) 5.35 X 10*3/uL (1.80-7.70); Neutrophils % (A) 78.4 %; Platelet Count 164 X 10*3/uL (140-440); RBC 2.89 X 10*6/uL (4.40-5.60); RDW 12.9 % (11.5-14.5); WBC 6.83 X 10*3/uL (4.50-10.00)
[2022-08-28 13:57] VITALS: BP 116/72; PULSE 87; TEMP 97.8
--- NOTE | 2022-08-28 21:29 | PN ---
PROGRESS NOTE DATE OF SERVICE: 08/28/2022 SUBJECTIVE: This is a 72-year-old gentleman, who was admitted after right total hip joint arthroplasty. He had a transient hypotension possibly secondary to Dilaudid according to staff. Otherwise, there is no history of any chest pain or palpitation. The patient is much more alert. Blood pressure came up and the patient is extremely keen on going home at this time. OBJECTIVE: VITAL SIGNS: Pulse is 81, blood pressure ntd respirations 16. CHEST: Clear to auscultation. CARDIOVASCULAR: S1, S2 muffled. ABDOMEN: Soft. LEGS: Status post surgery. LABORATORY DATA: Hemoglobin 9.9. The rest of labs are noted. Troponin 0.012. ASSESSMENT: 1. Status post right total hip joint arthroplasty. 2. History of coronary artery disease. 3. Hypertension. 4. Hyperlipidemia. 5. History of pulmonary embolism. 6. History of seizure disorder. 7. History of CAD stent. RECOMMENDATIONS AND DISCUSSION: Recommend to continue current medications, continue symptomatic treatment. Otherwise, at this time I recommend DVT prophylaxis. I would recommend Xarelto. Continue Xarelto and follow closely with primary physician. The rest of the recommendations per Orthopedic Surgery. Resume the home medications. MMODL / IJN: [id number] / [email or web address]
== END 2022-08-28 14:43 | disposition home or self-care (01) ==
LOC: OR 05:36 → 4SSUR 08:37 → OR 08-28 09:28 → 4SSUR 08-28 09:28
PROVIDERS: ADMIT Orthopaedic Surgery; ATTEND Orthopaedic Surgery
DX: M16.11 Unilateral primary osteoarthritis, right hip (principal); R03.1 Nonspecific low blood-pressure reading; I12.9 Hypertensive chronic kidney disease with stage 1 through stage 4 chronic kidney disease, or unspecified chronic kidney disease; N18.2 Chronic kidney disease, stage 2 (mild); G89.4 Chronic pain syndrome; I25.10 Atherosclerotic heart disease of native coronary artery without angina pectoris; E78.00 Pure hypercholesterolemia, unspecified; G43.909 Migraine, unspecified, not intractable, without status migrainosus; I10 Essential (primary) hypertension; G40.909 Epilepsy, unspecified, not intractable, without status epilepticus; F32.A Depression, unspecified; H91.90 Unspecified hearing loss, unspecified ear; Z79.82 Long term (current) use of aspirin; Z79.1 Long term (current) use of non-steroidal anti-inflammatories (NSAID); Z79.899 Other long term (current) drug therapy; Z88.8 Allergy status to other drugs, medicaments and biological substances; Z96.651 Presence of right artificial knee joint; Z86.711 Personal history of pulmonary embolism; Z98.890 Other specified postprocedural states
CPT/HCPCS: 93005; 97116; 97161; 97165; 64447; 86900; 86901; 80048; 84484; 85025; 86850; 88300; 73501; 27130; G0378; C1776; J2250; J1100; J0690 ×3; J2405 ×2; J3010; J2795; J2704; J1170 ×2

== ENCOUNTER 2022-09-25 16:25 | Emergency (ER) | payer MEDICARE ==
[2022-09-25 17:11] VITALS: TEMP 98.2
--- NOTE | 2022-09-25 17:28 | ED ---
General Adult HPI - General Source: patient, RN notes reviewed Mode of arrival: ambulatory Limitations: no limitations <Nicolasa Kingston - Last Filed: 09/25/22 17:20> <Louie Murray - Last Filed: 09/26/22 01:41> - General Chief complaint: Abdominal Pain Stated complaint: abd pain/black stool - History of Present Illness Initial comments: 72-year-old male presents emergency department chief complaint of abdominal pain and dark stools. He states that he has had multiple black stools in the past 2 days. He reports one loose bowel movement. He reports gripping abdominal pain in the lower abdomen. He denies fever, chills. Patient is on anticoagulation. (Nicolasa Kingston) 72-year-old male presenting with chief complaint of lower abdominal pain and dark stools for the last 2 days. Patient states that his stools have ranged from firm to loose. Patient does take an iron supplement. He has alcohol it was. No nausea or vomiting. No chest pain or difficulty breathing. No fevers or chills. No dysuria or hematuria. No rectal bleeding. (Louie Murray) - Related Data Home Medications Medication Instructions Recorded Confirmed Atorvastatin [Lipitor] 40 mg PO DAILY 01/05/15 08/23/22 Triamterene/Hydrochlorothiazid 1 tab PO DAILY 01/05/15 08/23/22 [Maxzide 37.5-25] amLODIPine [Norvasc] 5 mg PO DAILY 01/05/15 08/23/22 lisinopriL [Prinivil] 20 mg PO DAILY 01/05/15 08/23/22 Aspirin [Adult Low Dose Aspirin EC] 81 mg PO DAILY 06/29/19 08/23/22 Gabapentin [Neurontin] 300 mg PO BID 06/29/19 08/23/22 Baclofen 10 mg PO BID PRN 08/23/22 08/23/22 Celecoxib [CeleBREX] 200 mg PO DAILY 08/23/22 08/23/22 Cholecalciferol [Vitamin D3 (125 125 mcg PO DAILY 08/23/22 08/23/22 Mcg = 5000 Iu)] Sertraline [Zoloft] 50 mg PO BID 08/23/22 08/23/22 Previous Rx's Medication Instructions Recorded HYDROcodone/APAP 7.5-325MG [[place] 1 - 2 tab PO Q6H PRN #32 tab 08/27/22 7.5-325] Sennosides [Senokot] 2 tab PO DAILY PRN #60 tablet 08/27/22 Apixaban [Eliquis] 2.5 mg PO BID 35 Days #70 tab 08/28/22 Allergies Allergy/AdvReac Type Severity Reaction Status Date / Time nitroglycerin AdvReac Nausea & Verified 09/25/22 17:11 Vomiting Review of Systems ROS Other: All systems not noted in ROS Statement are negative. <Nicolasa Kingston - Last Filed: 09/25/22 17:20> ROS Other: All systems not noted in ROS Statement are negative. <Louie Murray - Last Filed: 09/26/22 01:41> ROS Statement: Those systems with pertinent positive or pertinent negative responses have been documented in the HPI. Past Medical History Past Medical History: Coronary Artery Disease (CAD), Cancer, Chest Pain / Angina, Hyperlipidemia, Hypertension, Osteoarthritis (OA), Pulmonary Embolus (PE), Seizure Disorder Additional Past Medical History / Comment(s): hx head injury,migraines, PE 2009, fx to rt arm/lt foot,chronic back paion, skin ca 2001 History of Any Multi-Drug Resistant Organisms: None Reported Past Surgical History: Adenoidectomy, Heart Catheterization With Stent, Joint Replacement, Orthopedic Surgery, Tonsillectomy Additional Past Surgical History / Comment(s): Left heart catheterization with PCI about 11 years ago, colonoscopy about 2 years ago was normal. LT FOOT SX MULTIPLE TIMES, RT TKA, BILAT KNEE SX, Right Hip replacement (08/27/2022) Past Anesthesia/Blood Transfusion Reactions: No Reported Reaction Date of Last Stent Placement:: 2001 Past Psychological History: Anxiety, Depression Smoking Status: Never smoker Past Alcohol Use History: Occasional Past Drug Use History: None Reported - Past Family History Mother Family Medical History: No Reported History Father Family Medical History: Coronary Artery Disease (CAD), Myocardial Infarction ([place]) Sister(s) Family Medical History: No Reported History Son(s) Family Medical History: No Reported History <Nicolasa Kingston - Last Filed: 09/25/22 17:20> General Exam Limitations: no limitations <Nicolasa Kingston - Last Filed: 09/25/22 17:20> Limitations: no limitations General appearance: alert, in no apparent distress Head exam: Present: atraumatic, normocephalic, normal inspection Eye exam: Present: normal appearance, EOMI. Absent: scleral icterus, periorbital swelling Neck exam: Present: normal inspection, full ROM Respiratory exam: Present: normal lung sounds bilaterally. Absent: respiratory distress, wheezes, rales, rhonchi, stridor Cardiovascular Exam: Present: regular rate, normal rhythm, normal heart sounds. Absent: systolic murmur, diastolic murmur, rubs, gallop, clicks GI/Abdominal exam: Present: soft. Absent: distended, tenderness, guarding, rebound, rigid Rectal exam: Present: normal inspection Neurological exam: Present: alert, oriented X3, CN II-XII intact Psychiatric exam: Present: normal affect, normal mood Skin exam: Present: warm, dry, intact, normal color. Absent: rash <Louie Murray - Last Filed: 09/26/22 01:41> - General Exam Comments Initial Comments: Visual Physical Exam Vital signs reviewed General: Well-appearing, nontoxic, no acute distress. Head: Normocephalic, atraumatic Eyes: PERRLA, EOMI ENT: Airway patent Chest: Nonlabored breathing Skin: No visual rash, normal skin tone Neuro: Alert and oriented 3 Musculoskeletal: No gross abnormalities (Kulka,Nicolasa) Course Vital Signs 09/25/22 09/25/22 17:08 20:34 Temperature 98.2 F Pulse Rate 99 73 Respiratory 20 18 Rate Blood Pressure 133/83 141/84 O2 Sat by Pulse 99 98 Oximetry EKG Findings - EKG Comments: EKG Findings:: Sinus rhythm with occasional supraventricular premature complexes. Ventricular rate 81. WI interval 151. QRS 91. QT 387. QTc 424. No ischemic changes. <Louie Murray - Last Filed: 09/26/22 01:41> Medical Decision Making - Lab Data Result diagrams: 09/25/22 18:23 09/25/22 18:23 <Louie Murray - Last Filed: 09/26/22 01:41> - Medical Decision Making Was pt. sent in by a medical professional or institution (, PA, CHEF CONCIERGE, urgent care, hospital, or fci...) When possible be specific @ -No Did you speak to anyone other than the patient for history (EMS, parent, family, police, friend...)? What history was obtained from this source @ -No Did you review nursing and triage notes (agree or disagree)? Why? @ -I reviewed and agree with nursing and triage notes Were old charts reviewed (outside hosp., previous admission, EMS record, old EKG, old radiological studies, urgent care reports/EKG's, fci records)? Report findings @ -No old charts were reviewed Differential Diagnosis (chest pain, altered mental status, abdominal pain women, abdominal pain men, vaginal bleeding, weakness, fever, dyspnea, syncope, headache, dizziness, GI bleed, back pain, seizure, CVA, palpatations, mental health, musculoskeletal)? @ -MDM Differential Abdominal Pain Men: Appendicitis, cholecystitis, diverticulosis, ischemic bowel, pancreatitis, hepatitis, UTI, gastroenteritis, AAA, incarcerated hernia, bowel obstruction, constipation, inflammatory bowel, hepatitis, peptic ulcer disease, splenic infarction, perforated viscus, testicular torsion... This is not meant to be an all-inclusive list EKG interpreted by me (3pts min.). @ -As above X-rays interpreted by me (1pt min.). @ -None done CT interpreted by me (1pt min.). @ -CT shows large stool burden throughout the colon correlates with fecal stasis. No additional evidence for acute abdominal process. No gastrointestinal hemorrhage visualized. Colonic diverticulosis. Multilevel at least moderate to possibly severe spinal canal stenosis. Mild splenomegaly. U/S interpreted by me (1pt. min.). @ -None done What testing was considered but not performed or refused? (CT, X-rays, U/S, labs)? Why? @ -None What meds were considered but not given or refused? Why? @ -None Did you discuss the management of the patient with other professionals (professionals i.e. , PA, [employer]ER[employer], lab, RT, psych nurse, social media intern, inside sales manager, teacher, occupational health and safety officer, onsite case manager)? Give summary @ -No Was smoking cessation discussed for >3mins.? @ -No Was critical care preformed (if so, how long)? @ -No Were there social determinants of health that impacted care today? How? (Homelessness, low income, unemployed, alcoholism, drug addiction, transportation, low edu. Level, literacy, decrease access to med. care, prison, rehab)? @ -No Was there de-escalation of care discussed even if they declined (Discuss DNR or withdrawal of care, Hospice)? DNR status @ -No What co-morbidities impacted this encounter? (DM, HTN, Smoking, COPD, CAD, Cancer, CVA, ARF, Chemo, Hep., AIDS, mental health diagnosis, sleep apnea, morbid obesity)? @ -None Was patient admitted / discharged? Hospital course, mention meds given and route, prescriptions, significant lab abnormalities, going to OR and other pertinent info. @ -72-year-old male presenting with chief complaint of lower abdominal pain and dark stools ongoing for the last 2 days. Physical examination is unremarkable. Occult stool is negative. Hemoglobin 11.3, consistent with baseline. CT shows stool burden with no other acute process. Patient is educated on today's findings. Patient does take an iron supplement which may have caused the dark stools. Provided with glycerin suppository for large stool burden. Follow-up with PCP. Report back to ER with any new or worsening symptoms. Discussed return parameters and answered all questions. Patient conveyed verbal understanding and agreed to the plan. I discussed this case in detail with my attending Dr. Lemon. Undiagnosed new problem with uncertain prognosis? @ -No Drug Therapy requiring intensive monitoring for toxicity (Heparin, Nitro, I nsulin, Cardizem)? @ -No Were any procedures done? @ -No Diagnosis/symptom? @ -Constipation Acute, or Chronic, or Acute on Chronic? @ -Acute Uncomplicated (without systemic symptoms) or Complicated (systemic symptoms)? @ -Uncomplicated Side effects of treatment? @ -No Exacerbation, Progression, or Severe Exacerbation? @ -No Poses a threat to life or bodily function? How? (Chest pain, [place], [place], pneumonia, PE, COPD, DKA, ARF, appy, cholecystitis, CVA, Diverticulitis, Homicidal, Suicidal, threat to staff... and all critical care pts) @ -No (Louie Murray) - Lab Data Lab Results 09/25/22 09/25/22 09/25/22 Range/Units 15:44 18:23 18:23 WBC 7.0 (3.8-10.6) k/uL RBC 3.76 L (4.30-5.90) m/uL Hgb 11.3 L (13.0-17.5) gm/dL Hct 34.7 L (39.0-53.0) % MCV 92.3 (80.0-100.0) fL MCH 30.1 (25.0-35.0) pg MCHC 32.6 (31.0-37.0) g/dL RDW 14.8 (11.5-15.5) % Plt Count 202 (150-450) k/uL MPV 7.5 Neutrophils % 81 % Lymphocytes % 12 % Monocytes % 5 % Eosinophils % 1 % Basophils % 0 % Neutrophils # 5.7 (1.3-7.7) k/uL Lymphocytes # 0.8 L (1.0-4.8) k/uL Monocytes # 0.3 (0-1.0) k/uL Eosinophils # 0.1 (0-0.7) k/uL Basophils # 0.0 (0-0.2) k/uL PT (9.0-12.0) sec INR (<1.2) APTT (22.0-30.0) sec Sodium 133 L (137-145) mmol/L Potassium 4.0 (3.5-5.1) mmol/L Chloride 101 (98-107) mmol/L Carbon Dioxide 20 L (22-30) mmol/L Anion Gap 12 mmol/L BUN 10 (9-20) mg/dL Creatinine 0.73 (0.66-1.25) mg/dL Est GFR (CKD-EPI)AfAm >90 (>60 ml/min/1.73 sqM) Est GFR (CKD-EPI)NonAf >90 (>60 ml/min/1.73 sqM) Glucose 96 (74-99) mg/dL Calcium 9.3 (8.4-10.2) mg/dL Total Bilirubin 0.7 (0.2-1.3) mg/dL AST 17 (17-59) U/L ALT 15 (4-49) U/L Alkaline Phosphatase 116 (38-126) U/L Total Protein 7.0 (6.3-8.2) g/dL Albumin 4.2 (3.5-5.0) g/dL Amylase 51 (30-110) U/L Lipase 39 (23-300) U/L Urine Color Light Yellow Urine Appearance Clear (Clear) Urine pH 6.0 (5.0-8.0) Ur Specific [place] 1.012 (1.001-1.035) Urine Protein Negative (Negative) Urine Glucose (UA) Negative (Negative) Urine Ketones 1+ H (Negative) Urine Blood Negative (Negative) Urine Nitrite Negative (Negative) Urine Bilirubin Negative (Negative) Urine Urobilinogen <2.0 (<2.0) mg/dL Ur Leukocyte Esterase Negative (Negative) Stool Occult Blood (Negative) 09/25/22 09/25/22 Range/Units 18:23 20:31 WBC (3.8-10.6) k/uL RBC (4.30-5.90) m/uL Hgb (13.0-17.5) gm/dL Hct (39.0-53.0) % MCV (80.0-100.0) fL MCH (25.0-35.0) pg MCHC (31.0-37.0) g/dL RDW (11.5-15.5) % Plt Count (150-450) k/uL MPV Neutrophils % % Lymphocytes % % Monocytes % % Eosinophils % % Basophils % % Neutrophils # (1.3-7.7) k/uL Lymphocytes # (1.0-4.8) k/uL Monocytes # (0-1.0) k/uL Eosinophils # (0-0.7) k/uL Basophils # (0-0.2) k/uL PT 10.5 (9.0-12.0) sec INR 1.0 (<1.2) APTT 24.3 (22.0-30.0) sec Sodium (137-145) mmol/L Potassium (3.5-5.1) mmol/L Chloride (98-107) mmol/L Carbon Dioxide (22-30) mmol/L Anion Gap mmol/L BUN (9-20) mg/dL Creatinine (0.66-1.25) mg/dL Est GFR (CKD-EPI)AfAm (>60 ml/min/1.73 sqM) Est GFR (CKD-EPI)NonAf (>60 ml/min/1.73 sqM) Glucose (74-99) mg/dL Calcium (8.4-10.2) mg/dL Total Bilirubin (0.2-1.3) mg/dL AST (17-59) U/L ALT (4-49) U/L Alkaline Phosphatase (38-126) U/L Total Protein (6.3-8.2) g/dL Albumin (3.5-5.0) g/dL Amylase (30-110) U/L Lipase (23-300) U/L Urine Color Urine Appearance (Clear) Urine pH (5.0-8.0) Ur Specific [place] (1.001-1.035) Urine Protein (Negative) Urine Glucose (UA) (Negative) Urine Ketones (Negative) Urine Blood (Negative) Urine Nitrite (Negative) Urine Bilirubin (Negative) Urine Urobilinogen (<2.0) mg/dL Ur Leukocyte Esterase (Negative) Stool Occult Blood Negative (Negative) Disposition <Nicolasa Kingston - Last Filed: 09/25/22 17:20> Is patient prescribed a controlled substance at d/c from ED?: No Time of Disposition: 22:16 <Louie Murray - Last Filed: 09/26/22 01:41> Clinical Impression: Constipation Disposition: HOME SELF-CARE Condition: Good Instructions (If sedation given, give patient instructions): Constipation (ED), High Fiber Diet (ED) Additional Instructions: Follow-up with PCP. Report back to ER with any new or worsening symptoms. An [id number] fiber supplement such as Metamucil may be helpful with preventing constipation. May use [id number] MiraLAX as needed for constipation. Referrals: Juan Francisco Noe MD [Primary Care Provider] - 1-2 days
[2022-09-25 18:59] LABS: Basophils % (A) 0 %; Eosinophils # (A) 0.1 k/uL (0-0.7); Eosinophils % (A) 1 %; HCT 34.7 % (39.0-53.0); HGB 11.3 gm/dL (13.0-17.5); Lymphocytes # (A) 0.8 k/uL (1.0-4.8); Lymphocytes % (A) 12 %; MCH 30.1 pg (25.0-35.0); MCHC 32.6 g/dL (31.0-37.0); MCV 92.3 fL (80.0-100.0); Mean Platelet Volume 7.5; Monocytes # (A) 0.3 k/uL (0-1.0); Monocytes % (A) 5 %; Neutrophils # (A) 5.7 k/uL (1.3-7.7); Neutrophils % (A) 81 %; Platelet Count 202 k/uL (150-450); RBC 3.76 m/uL (4.30-5.90); RDW 14.8 % (11.5-15.5)
[2022-09-25 19:08] LABS: Partial Thromboplastin Time 24.3 sec (22.0-30.0); Prothrombin Time 10.5 sec (9.0-12.0)
[2022-09-25 19:20] LABS: ALT 15 U/L (4-49); AST 17 U/L (17-59); African American GFR (CKD) >90 (>60 ml/min/1.73 sqM); Albumin 4.2 g/dL (3.5-5.0); Alkaline Phosphatase 116 U/L (38-126); Amylase 51 U/L (30-110); Anion Gap 12 mmol/L; Blood Urea Nitrogen 10 mg/dL (9-20); Calcium 9.3 mg/dL (8.4-10.2); Carbon Dioxide 20 mmol/L (22-30); Chloride 101 mmol/L (98-107); Glucose 96 mg/dL (74-99); Lipase 39 U/L (23-300); Non-African American GFR(CKD) >90 (>60 ml/min/1.73 sqM); Sodium 133 mmol/L (137-145); Total Bilirubin 0.7 mg/dL (0.2-1.3)
[2022-09-25] MEDS ORDERED: LORazepam 2 MG/ML INJ IV STA (20:09)
[2022-09-25 20:24] LABS: Appearance,Urine Clear (Clear); Bilirubin,Urine Negative (Negative); Blood,Urine Negative (Negative); Color,Urine Light Yellow; Glucose,Urine (UA) Negative (Negative); Ketones,Urine 1+ (Negative); Leukocyte Esterase,Urine Negative (Negative); Nitrite,Urine Negative (Negative); Protein,Urine Negative (Negative); Specific Gravity,Urine 1.012 (1.001-1.035); Urobilinogen,Urine <2.0 mg/dL (<2.0)
[2022-09-25 20:35] VITALS: RESP 18
--- NOTE | 2022-09-25 21:56 | CT ---
EXAMINATION TYPE: CT abdomen pelvis w con CT DLP: 1445.4 mGycm, Automated exposure control for dose reduction was used. DATE OF EXAM: 09/25/2022 9:12 PM COMPARISON: None CLINICAL INDICATION:Male, 72 years old with history of lower abdominal pain, dark stool; lower abdomi nal pain, dark stool TECHNIQUE: Axial CT of the abdomen and pelvis. Sagittal and coronal reformats were created on a [employer] workstation. Contrast used:100ml mL of Isovue 300 with IV Contrast, Oral contrast used: without Oral Contrast FINDINGS: LOWER CHEST: The heart is mildly enlarged for size. There is coronary artery atherosclerosis. ABDOMEN LIVER: Unremarkable GALLBLADDER AND BILE DUCTS: The gallbladder is somewhat distended. PANCREAS: Unremarkable. SPLEEN: The spleen is mildly enlarged measuring up to 15.0 cm. ADRENAL GLANDS: Unremarkable. KIDNEYS AND URETERS: No evidence of hydronephrosis or renal calculus. The ureters are unremarkable. PELVIS BLADDER: Unremarkable REPRODUCTIVE: Unremarkable. ABDOMEN & PELVIS STOMACH AND BOWEL: No evidence of bowel obstruction. Scattered colonic diverticula worse in the sigmo id colon. The appendix is normal. There is redundant transverse colon. PERITONEUM/RETROPERITONEUM: No evidence of pneumoperitoneum or free fluid. VASCULATURE: No evidence of aortic aneurysm. MUSCULOSKELETAL: No acute osseous abnormalities. Mild disc degeneration changes are present throughou t the thoracolumbar spine., right hip arthroplasty. Hardware appears intact. Multilevel disc degenera tion changes throughout the spine worse in the lumbar spine. Multilevel at least moderate to possibly severe spinal canal stenosis. LYMPH NODES: No gross evidence for lymphadenopathy. SOFT TISSUE/ABDOMINAL WALL: Fat-containing umbilical hernia. IMPRESSION: 1. Large stool burden throughout the colon correlate for fecal stasis. No additional evidence for ac mikel abdominal process. No gastrointestinal hemorrhage visualized. 2. Colonic diverticulosis. 3. Multilevel at least moderate to possibly severe spinal canal stenosis. 4. Mild splenomegaly.
[2022-09-25 23:04] VITALS: BP 121/81; PULSE 77
== END 2022-09-25 23:03 | disposition home or self-care (01) ==
LOC: EC 16:25
DX: K57.30 Diverticulosis of large intestine without perforation or abscess without bleeding (principal); I25.10 Atherosclerotic heart disease of native coronary artery without angina pectoris; E78.5 Hyperlipidemia, unspecified; I10 Essential (primary) hypertension; M19.90 Unspecified osteoarthritis, unspecified site; Z86.73 Personal history of transient ischemic attack (TIA), and cerebral infarction without residual deficits; F41.9 Anxiety disorder, unspecified; F32.A Depression, unspecified; Z79.01 Long term (current) use of anticoagulants; Z79.1 Long term (current) use of non-steroidal anti-inflammatories (NSAID); Z79.82 Long term (current) use of aspirin; Z79.899 Other long term (current) drug therapy; Z88.6 Allergy status to analgesic agent
CPT/HCPCS: 36415; 80053; 82150; 83690; 85025; 85610; 85730; 82272; 81003; 74177; 99284; 96374; J2060; Q9967

== ENCOUNTER 2022-11-26 07:04 | Day surgery (SDC) | payer MEDICARE ==
[~2022-11-26 07:04] MED LIST changes: -ACETAMINOPHEN TAB 500 MG TAB PO PRN; -GABAPENTIN 300 MG CAP PO PRN; +LACTATED RINGERS 1,000 ML IV SCH; -MELOXICAM 7.5 MG TAB PO PRN; -TRANEXAMIC ACID IN NACL,ISO-OS 1,000 MG in SALINE 1 100ML.BAG IVPB PRN
[2022-11-26 07:22] VITALS: TEMP 98.8
[2022-11-26] MEDS ORDERED: MIDAZOLAM 2 MG/2 ML VIAL ONE (08:15)
[2022-11-26] MEDS ORDERED: PROPOFOL 10 MG/ML 20 ML VIAL IV ONE (08:15)
[2022-11-26] MEDS ORDERED: LIDOCAINE 2% INJ 20 MG/ML (2 ML VIAL) ONE (08:15)
[2022-11-26] MEDS ORDERED: fentaNYL (PF) 50 MCG/ML 2 ML AMP ONE (08:15)
--- NOTE | 2022-11-26 08:39 | P.PCN ---
Date of Procedure: 11/26/22 Procedure(s) Performed: Brief history: Patient is a pleasant 72-year-old white male scheduled for an elective upper endoscopy as well as colonoscopy as a part of evaluation of Iron deficiency anemia and intermittent black tarry stools for the last 2 weeks' duration Procedure performed: Esophagogastroduodenoscopy with biopsy Colonoscopy Preoperative diagnosis: Iron deficiency anemia and intermittent black tarry stools [place] [facility] [place] After informed consent was obtained from the patient was brought into the endoscopy unit and IV sedation was administered by anesthesia under continuous monitoring. Initially upper endoscopy was done. The Olympus GF 160 video endoscope was inserted inserted into the mouth and esophagus intubated without any difficulty and was gradually advanced into the stomach and duodenum and carefully examined. The bulb and second part of the duodenum appeared normal. Biopsies of the duodenum were done to evaluate for celiac disease. The scope was then withdrawn into the stomach adequately insufflated with air and upon careful examination the antrum had moderate to severe erosive gastritis and biopsies were done from this area. Mucosa of the body, cardia and fundus appeared normal. The scope was then withdrawn into the esophagus. The GE junction was located at 40 cm to the incisors. It appeared regular with no erythema erosions or ulcerations. Rest of the esophagus appeared normal. Patient tolerated the procedure well. At this time the patient continued to remain sedation. Initial digital rectal examination was normal. Olympus CF 160 video colonoscope was then inserted into the rectum and gradually advanced to the cecum without any difficulty. Careful examination was performed as the scope was gradually being withdrawn. The prep was excellent. The cecum, ascending colon, transverse colon, descending colon, sigmoid colon and rectum appeared normal. Retroflexion was performed in the rectum and no lesions were noted. Patient tolerated the procedure well. Impression: 1. Upper endoscopy revealed moderate to severe erosive antral gastritis but no evidence of peptic ulcer disease 2. Colonoscopy revealed scattered sigmoid diverticula cyst but no evidence of colorectal neoplasia Recommendations: Findings of this examination were discussed with the patient as well as his family. He was advised to follow with the biopsy results. Advised to start on Prilosec 20 mg daily and avoid NSAIDs. Continue with iron supplements and monitor CBC periodically. Repeat screening colonoscopy at age 80
[2022-11-26 09:04] VITALS: BP 101/64; PULSE 59; RESP 20
== END 2022-11-26 09:38 | disposition home or self-care (01) ==
LOC: ORWHC2ENDO 07:04
PROVIDERS: ATTEND Internal Medicine Gastroenterology
DX: K29.50 Unspecified chronic gastritis without bleeding (principal); K31.9 Disease of stomach and duodenum, unspecified; D64.9 Anemia, unspecified; K59.00 Constipation, unspecified; D50.9 Iron deficiency anemia, unspecified; K92.1 Melena; K57.30 Diverticulosis of large intestine without perforation or abscess without bleeding; I25.10 Atherosclerotic heart disease of native coronary artery without angina pectoris; I10 Essential (primary) hypertension; E78.5 Hyperlipidemia, unspecified; G40.909 Epilepsy, unspecified, not intractable, without status epilepticus; Z79.899 Other long term (current) drug therapy
CPT/HCPCS: 88305; 45378; 43239; J2250; J3010; J2704; J2001

== ENCOUNTER 2023-02-02 06:39 | Emergency (ER) | payer MEDICARE ==
[2023-02-02] MEDS ORDERED: HYDROcodone/APAP 5-325MG 1 EACH TAB PO STA (07:08)
[2023-02-02] MEDS ORDERED: ACET/COD 300 MG/30 MG STARTER PACK 6 TAB BTL PO STA (07:08)
[2023-02-02] MEDS ORDERED: DIPH,PERTUS(ACELL)TETVAC-LF 0.5 ML VIAL IM ONE (07:09)
--- NOTE | 2023-02-02 07:16 | ED ---
General Adult HPI - General Chief complaint: Burn/Smoke Inhalation Stated complaint: Burn on right foot Time Seen by Provider: 02/02/23 06:56 Source: patient, RN notes reviewed Mode of arrival: wheelchair Limitations: no limitations - History of Present Illness Initial comments: 72-year-old male presents emergency Department chief complaint of burn to his right foot. Patient states his happened 2 days ago. Patient states that he was cooking some hot grease onto his foot) through his sock. He states that he has moderate discomfort to his foot his tetanus is not up-to-date. He states been trying to wrap at home but felt that he should be evaluated. - Related Data Home Medications Medication Instructions Recorded Confirmed Atorvastatin [Lipitor] 40 mg PO DAILY 01/05/15 11/19/22 Triamterene/Hydrochlorothiazid 1 tab PO DAILY 01/05/15 11/19/22 [Maxzide 37.5-25] lisinopriL [Prinivil] 10 mg PO DAILY 01/05/15 11/19/22 Aspirin [Adult Low Dose Aspirin EC] 81 mg PO DAILY 06/29/19 11/19/22 Gabapentin [Neurontin] 300 mg PO DAILY 06/29/19 11/19/22 Baclofen 10 mg PO DAILY PRN 08/23/22 11/19/22 Celecoxib [CeleBREX] 200 mg PO DAILY 08/23/22 11/19/22 Cholecalciferol [Vitamin D3 (125 125 mcg PO DAILY 08/23/22 11/19/22 Mcg = 5000 Iu)] Sertraline [Zoloft] 50 mg PO DAILY 08/23/22 11/19/22 ALPRAZolam [Xanax] 0.5 mg PO TID PRN 11/19/22 11/19/22 Ferrous Sulfate [Feosol] 325 mg PO DAILY 11/19/22 11/19/22 Allergies Allergy/AdvReac Type Severity Reaction Status Date / Time nitroglycerin AdvReac Nausea & Verified 11/19/22 10:30 Vomiting Review of Systems ROS Statement: Those systems with pertinent positive or pertinent negative responses have been documented in the HPI. ROS Other: All systems not noted in ROS Statement are negative. Past Medical History Past Medical History: Coronary Artery Disease (CAD), Cancer, Chest Pain / Angina, Hyperlipidemia, Hypertension, Osteoarthritis (OA), Pulmonary Embolus (PE), Seizure Disorder Additional Past Medical History / Comment(s): hx head injury,migraines, PE 2009, fx to rt arm/lt foot,chronic back pain, skin ca 2001 ,black stools,last seizure more than 20yrs ago History of Any Multi-Drug Resistant Organisms: None Reported Past Surgical History: Adenoidectomy, Heart Catheterization With Stent, Joint Replacement, Orthopedic Surgery, Tonsillectomy Additional Past Surgical History / Comment(s): Left heart catheterization with PCI about 11 years ago, colonoscopy about 2 years ago was normal. LT FOOT SX MULTIPLE TIMES, RT TKA, BILAT KNEE SX, Right Hip replacement (08/27/2022) rt ankle fx repair. Past Anesthesia/Blood Transfusion Reactions: No Reported Reaction Date of Last Stent Placement:: 2001 Past Psychological History: Anxiety Smoking Status: Never smoker Past Alcohol Use History: None Reported Past Drug Use History: None Reported - Past Family History Mother Family Medical History: No Reported History Father Family Medical History: Coronary Artery Disease (CAD), Myocardial Infarction ([place]) Sister(s) Family Medical History: No Reported History Son(s) Family Medical History: No Reported History General Exam Limitations: no limitations General appearance: alert, in no apparent distress Head exam: Present: atraumatic, normocephalic, normal inspection Respiratory exam: Present: normal lung sounds bilaterally. Absent: respiratory distress, wheezes, rales, rhonchi, stridor Cardiovascular Exam: Present: regular rate, normal rhythm, normal heart sounds. Absent: systolic murmur, diastolic murmur, rubs, gallop, clicks Extremities exam: Present: other (Right foot dorsal aspect just proximal to the first and second digit there is a 6 cm circular burn that patient has no sensation in the center there is second-degree driver of the second third digit there is no circumferential driver) Course Vital Signs 02/02/23 06:47 Temperature 98.8 F Pulse Rate 93 Respiratory 18 Rate Blood Pressure 115/63 O2 Sat by Pulse 97 Oximetry Medical Decision Making - Medical Decision Making Was pt. sent in by a medical professional or institution (, PA, [employer], urgent care, hospital, or fpc...) When possible be specific @ -No Did you speak to anyone other than the patient for history (EMS, parent, family, police, friend...)? What history was obtained from this source @ -No Did you review nursing and triage notes (agree or disagree)? Why? @ -I reviewed and agree with nursing and triage notes Were old charts reviewed (outside hosp., previous admission, EMS record, old EKG, old radiological studies, urgent care reports/EKG's, fpc records)? Report findings @ -No old charts were reviewed Differential Diagnosis (chest pain, altered mental status, abdominal pain women, abdominal pain men, vaginal bleeding, weakness, fever, dyspnea, syncope, headache, dizziness, GI bleed, back pain, seizure, CVA, palpatations, mental health, musculoskeletal)? @ -Burn, second-degree burn, third-degree burn EKG interpreted by me (3pts min.). @ -None X-rays interpreted by me (1pt min.). @ -None done CT interpreted by me (1pt min.). @ -None done U/S interpreted by me (1pt. min.). @ -None done What testing was considered but not performed or refused? (CT, X-rays, U/S, labs)? Why? @ -None What meds were considered but not given or refused? Why? @ -None Did you discuss the management of the patient with other professionals (professionals i.e. , PA, [employer], lab, RT, psych nurse, high school social science teacher, purchase analyst, teacher, loss prevention officer, case specialist)? Give summary @ -No Was smoking cessation discussed for >3mins.? @ -No Was critical care preformed (if so, how long)? @ -No Were there social determinants of health that impacted care today? How? (Homelessness, low income, unemployed, alcoholism, drug addiction, transportation, low edu. Level, literacy, decrease access to med. care, skilled nursing, rehab)? @ -No Was there de-escalation of care discussed even if they declined (Discuss DNR or withdrawal of care, Hospice)? DNR status @ -No What co-morbidities impacted this encounter? (DM, HTN, Smoking, COPD, CAD, Cancer, CVA, ARF, Chemo, Hep., AIDS, mental health diagnosis, sleep apnea, morbid obesity)? @ -None Was patient admitted / discharged? Hospital course, mention meds given and route, prescriptions, significant lab abnormalities, going to OR and other pertinent info. @ -Patient's tetanus is updated, patient has second and third-degree burn noted a no circumferential driver his happened for 2 days ago. He is advised that needs contact burn clinic today for follow-up tomorrow his tetanus is updated patient is discharged with Silvadene. Undiagnosed new problem with uncertain prognosis? @ -No Drug Therapy requiring intensive monitoring for toxicity (Heparin, Nitro, Insulin, Cardizem)? @ -No Were any procedures done? @ -No Diagnosis/symptom? @ -Second degree burn, third-degree burn Acute, or Chronic, or Acute on Chronic? @ -Acute Uncomplicated (without systemic symptoms) or Complicated (systemic symptoms)? @ -Uncomplicated Side effects of treatment? @ -No Exacerbation, Progression, or Severe Exacerbation? @ -No Poses a threat to life or bodily function? How? (Chest pain, [place], [place], pneumonia, PE, COPD, DKA, ARF, appy, cholecystitis, CVA, Diverticulitis, Homicidal, Suicidal, threat to staff... and all critical care pts) @ -No Disposition Clinical Impression: Second degree burn of right foot, Third degree burn of right foot Disposition: HOME SELF-CARE Condition: Stable Instructions (If sedation given, give patient instructions): Third-Degree Burn (ED), Second-Degree Burn (ED) Additional Instructions: Contact [facility] burn clinic [phone] today for follow-up appointment tomorrow or [facility] . Please return to the Emergency Department if symptoms worsen or any other concerns. Is patient prescribed a controlled substance at d/c from ED?: No Referrals: Juan Francisco Noe MD [Primary Care Provider] - 1-2 days Time of Disposition: 07:15
[2023-02-02 07:38] VITALS: RESP 18; TEMP 98.8
[2023-02-02 07:55] VITALS: BP 146/78; PULSE 80
== END 2023-02-02 07:49 | disposition home or self-care (01) ==
LOC: EC 06:39
DX: T25.221A Burn of second degree of right foot, initial encounter (principal); T31.0 Burns involving less than 10% of body surface; E78.5 Hyperlipidemia, unspecified; I10 Essential (primary) hypertension; I25.10 Atherosclerotic heart disease of native coronary artery without angina pectoris; F41.9 Anxiety disorder, unspecified; Z23 Encounter for immunization; Z79.82 Long term (current) use of aspirin; Z79.899 Other long term (current) drug therapy; Z88.8 Allergy status to other drugs, medicaments and biological substances; X10.2XXA Contact with fats and cooking oils, initial encounter
CPT/HCPCS: 90471; 90715; 99283

== ENCOUNTER 2023-05-14 15:21 | Observation (INO) | payer MEDICARE ==
--- NOTE | 2023-05-14 16:16 | ED ---
Chest Pain HPI - General Chief Complaint: Chest Pain Stated Complaint: chest pain Time Seen by Provider: 05/14/23 16:15 Source: patient, RN notes reviewed Mode of arrival: wheelchair Limitations: no limitations - History of Present Illness Initial Comments: This is a 72-year-old male who presents to the emergency department for chest pain and shortness of breath. Chest pain is described as centralized and started 2 to 3 days ago. Reports associated shortness of breath and states that he has no energy and is struggling with exertional activities. Reports a history of stent placement approximately 20 years ago, and states that this feels similar to the pain he had around that time. Currently follows with Dr. Brock, cardiology. He is no longer taking blood thinners. MD Complaint: chest pain - Related Data Home Medications Medication Instructions Recorded Confirmed Atorvastatin [Lipitor] 40 mg PO DAILY 01/05/15 05/14/23 Triamterene/Hydrochlorothiazid 1 tab PO DAILY 01/05/15 05/14/23 [Maxzide 37.5-25] Gabapentin [Neurontin] 300 mg PO DAILY 06/29/19 05/14/23 Baclofen 10 mg PO BID PRN 08/23/22 05/14/23 Celecoxib [CeleBREX] 200 mg PO DAILY 08/23/22 05/14/23 Sertraline [Zoloft] 50 mg PO DAILY 08/23/22 05/14/23 LORazepam [Ativan] 1 mg PO TID PRN 05/14/23 05/14/23 Omeprazole 20 mg PO DAILY 05/14/23 05/14/23 amLODIPine [Norvasc] 5 mg PO DAILY 05/14/23 05/14/23 lisinopriL [Zestril] 10 mg PO DAILY 05/14/23 05/14/23 Allergies Allergy/AdvReac Type Severity Reaction Status Date / Time nitroglycerin AdvReac Nausea & Verified 05/14/23 22:40 Vomiting Review of Systems ROS Statement: Those systems with pertinent positive or pertinent negative responses have been documented in the HPI. ROS Other: All systems not noted in ROS Statement are negative. Past Medical History Past Medical History: Coronary Artery Disease (CAD), Cancer, Chest Pain / Angina, Hyperlipidemia, Hypertension, Osteoarthritis (OA), Pulmonary Embolus (PE), Seizure Disorder Additional Past Medical History / Comment(s): hx head injury,migraines, PE 2009, fx to rt arm/lt foot,chronic back pain, skin ca 2001 ,black stools,last seizure more than 20yrs ago History of Any Multi-Drug Resistant Organisms: None Reported Past Surgical History: Adenoidectomy, Heart Catheterization With Stent, Joint Replacement, Orthopedic Surgery, Tonsillectomy Additional Past Surgical History / Comment(s): Left heart catheterization with PCI about 11 years ago, colonoscopy about 2 years ago was normal. LT FOOT SX MULTIPLE TIMES, RT TKA, BILAT KNEE SX, Right Hip replacement (08/27/2022) rt ankle fx repair. Past Anesthesia/Blood Transfusion Reactions: No Reported Reaction Date of Last Stent Placement:: 2001 Past Psychological History: Anxiety Smoking Status: Never smoker Past Alcohol Use History: None Reported Past Drug Use History: None Reported - Past Family History Mother Family Medical History: No Reported History Father Family Medical History: Coronary Artery Disease (CAD), Myocardial Infarction ([place]) Sister(s) Family Medical History: No Reported History Son(s) Family Medical History: No Reported History General Exam - General Exam Comments Initial Comments: Visual Physical Exam Vital signs reviewed General: Well-appearing, nontoxic, no acute distress. Head: Normocephalic, atraumatic Eyes: PERRLA, EOMI ENT: Airway patent Chest: Nonlabored breathing Skin: No visual rash, normal skin tone Neuro: Alert and oriented 3 Musculoskeletal: No gross abnormalities Limitations: no limitations General appearance: alert, in no apparent distress Head exam: Present: atraumatic, normocephalic, normal inspection Respiratory exam: Present: normal lung sounds bilaterally. Absent: respiratory distress, wheezes, rales, rhonchi, stridor Cardiovascular Exam: Present: normal rhythm, tachycardia, normal heart sounds. Absent: systolic murmur, diastolic murmur, rubs, gallop, clicks Neurological exam: Present: alert, oriented X3, CN II-XII intact Psychiatric exam: Present: normal affect, normal mood Skin exam: Present: warm, dry, intact, normal color. Absent: rash Course Vital Signs 05/14/23 05/14/23 05/14/23 15:22 20:40 23:00 Temperature 97.4 F L Pulse Rate 126 H 110 H 89 Pulse Rate [ Dance Professor ] Respiratory 18 17 Rate Blood Pressure 121/71 114/75 O2 Sat by Pulse 97 98 98 Oximetry 05/14/23 05/15/23 05/15/23 23:30 00:30 02:30 Temperature Pulse Rate 91 73 84 Pulse Rate [ Dance Professor ] Respiratory 23 17 18 Rate Blood Pressure 122/65 109/64 102/63 O2 Sat by Pulse 97 98 97 Oximetry 05/15/23 05/15/23 05/15/23 04:00 06:00 08:00 Temperature Pulse Rate 137 H 83 112 H Pulse Rate [ Dance Professor ] Respiratory 21 13 18 Rate Blood Pressure 109/72 112/64 O2 Sat by Pulse 98 97 99 Oximetry 05/15/23 05/15/23 05/15/23 08:33 11:13 12:00 Temperature 97.8 F 97.3 F L Pulse Rate 120 H 118 H 105 H Pulse Rate [ 120 H Dance Professor ] Respiratory 18 18 18 Rate Blood Pressure 121/93 130/94 111/71 O2 Sat by Pulse 98 100 98 Oximetry 05/15/23 05/15/23 05/15/23 13:27 14:00 15:49 Temperature Pulse Rate 104 H 92 83 Pulse Rate [ Dance Professor ] Respiratory 18 18 18 Rate Blood Pressure 115/69 104/67 88/64 O2 Sat by Pulse 98 96 96 Oximetry 05/15/23 17:16 Temperature 97.6 F Pulse Rate 93 Pulse Rate [ Dance Professor ] Respiratory 18 Rate Blood Pressure 106/73 O2 Sat by Pulse 97 Oximetry Chest Pain MDM - MDM This is a 72-year-old male who presents to the emergency department for chest pain. Was pt. sent in by a medical professional or institution? @ -No Did you speak to anyone other than the patient for history? @ -No Did you review nursing and triage notes? @ -Yes, and I agree, it is accurate with regards to the patient's symptoms. Were old charts reviewed? @ -No Differential Diagnosis? @ -Differential Chest Pain: Stable Angina, Unstable Angina, STEMI, NSTEMI Aortic Dissection, Pneumothorax, Musculoskeletal, Esophageal Spasm GERD, Cholecystitis, Pancreatitis, Zoster, this is not meant to be an all-inclusive list. EKG interpreted by me (3pts min.)? @ -EKG interpreted by me demonstrating the following: Sinus tachycardia. Ventricular rate 113 bpm, NH interval 141 ms, QRS duration 89 ms, QTC 418 ms. X-rays interpreted by me (1pt min.)? @ -Chest x-ray obtained, my interpretation identifies no localized consolidations or infiltrates. CT interpreted by me (1pt min.)? @ -Not obtained U/S interpreted by me (1pt. min.)? @ -Not obtained What testing was considered but not performed? (CT, X-rays, U/S, labs)? Why? @ -None What meds were considered but not given? Why? @ -None Did you discuss the management of the patient with other professionals? @ -Yes, Dilcia Santizo with [facility], who accepts the patient for admission. Did you reconcile home meds? @ -Yes Was smoking cessation discussed for >3mins.? @ -No Was critical care preformed (if so, how long)? @ -No Were there social determinants of health that impacted care today? How? (Homelessness, low income, unemployed, alcoholism, drug addiction, transportation, low edu. Level, literacy, decrease access to med. care, senior care, rehab)? @ -No Was there de-escalation of care discussed even if they declined? (Discuss DNR or withdrawal of care, Hospice)? @ -No What co-morbidities impacted this encounter? (DM, HTN, Smoking, COPD, CAD, Cancer, CVA, Hep., AIDS, mental health diagnosis, sleep apnea, morbid obesity)? @ -CAD, HTN, HLD Was patient admitted / discharged? @ -Admitted. Lab work obtained revealing signs of dehydration and was otherwise unremarkable. Troponin and d-dimer negative. Patient treated with aspirin and morphine with only some improvement in symptoms. States that all forms of nitroglycerin cause him to have significant nausea and vomiting, and he requested to avoid it if possible. Given the patient's cardiac history with active chest pain, patient was admitted to medicine for cardiac observation. Ser ial troponins ordered. Consult placed for cardiology. Undiagnosed new problem with uncertain prognosis? @ -None Drug Therapy requiring intensive monitoring for toxicity (Heparin, Nitro, Insulin, Cardizem)? @ -None Were any procedures done? @ -None Diagnosis/symptom? @ -Chest pain Acute, or Chronic, or Acute on Chronic? @ -Acute Uncomplicated (without systemic symptoms) or Complicated (systemic symptoms)? @ -Uncomplicated Side effects of treatment? @ -None Exacerbation, Progression, or Severe Exacerbation] @ -Not applicable Poses a threat to life or bodily function? @ -Yes This case was discussed in detail with the attending ED physician, Dr. Basilio. Presentation, findings, and treatment plan discussed in detail as well. Disposition Clinical Impression: Chest pain Disposition: ADMITTED IP TO THIS HOSP Time of Disposition: 22:37
--- NOTE | 2023-05-14 16:26 | XR ---
EXAMINATION TYPE: XR chest 2V DATE OF EXAM: 05/14/2023 4:04 PM CLINICAL INDICATION:Male, 72 years old with history of Chest Pain; COMPARISON: Chest radiographs from 01/05/2015 TECHNIQUE: XR chest 2V Frontal and lateral views of the chest. FINDINGS: Lungs/Pleura: There is no evidence of pleural effusion, focal consolidation, or pneumothorax. Pulmonary vascularity: Unremarkable. Heart/mediastinum: Cardiomediastinal silhouette is unremarkable. Musculoskeletal: No acute osseous pathology. IMPRESSION: No acute cardiopulmonary disease/process.
[2023-05-14 17:37] LABS: Basophils % (A) 0 %; Eosinophils # (A) 0.1 k/uL (0-0.7); Eosinophils % (A) 1 %; HCT 42.9 % (39.0-53.0); HGB 14.5 gm/dL (13.0-17.5); Lymphocytes # (A) 0.9 k/uL (1.0-4.8); Lymphocytes % (A) 13 %; MCH 31.3 pg (25.0-35.0); MCHC 33.7 g/dL (31.0-37.0); MCV 92.9 fL (80.0-100.0); Mean Platelet Volume 7.6; Monocytes # (A) 0.4 k/uL (0-1.0); Monocytes % (A) 6 %; Neutrophils # (A) 5.5 k/uL (1.3-7.7); Neutrophils % (A) 78 %; Platelet Count 172 k/uL (150-450); RBC 4.62 m/uL (4.30-5.90); RDW 13.8 % (11.5-15.5); WBC 7.1 k/uL (3.8-10.6)
[2023-05-14 17:52] LABS: ALT 17 U/L (4-49); AST 20 U/L (17-59); African American GFR (CKD) >90 (>60 ml/min/1.73 sqM); Albumin 4.9 g/dL (3.5-5.0); Alkaline Phosphatase 78 U/L (38-126); Anion Gap 15 mmol/L; Blood Urea Nitrogen 26 mg/dL (9-20); Calcium 10.4 mg/dL (8.4-10.2); Carbon Dioxide 17 mmol/L (22-30); Chloride 100 mmol/L (98-107); Glucose 103 mg/dL (74-99); Magnesium 1.8 mg/dL (1.6-2.3); Non-African American GFR(CKD) 78 (>60 ml/min/1.73 sqM); Potassium 4.1 mmol/L (3.5-5.1); Sodium 132 mmol/L (137-145); Total Bilirubin 0.9 mg/dL (0.2-1.3); Total Protein 7.8 g/dL (6.3-8.2)
[2023-05-14 19:37] LABS: Partial Thromboplastin Time 26.3 sec (22.0-30.0); Prothrombin Time 10.8 sec (10.0-12.5)
[2023-05-14] MEDS ORDERED: ASPIRIN 81 MG PO STA (21:12)
[2023-05-14] MEDS ORDERED: MORPHINE SULFATE 4 MG/ML SYRINGE IVP STA ×2 (21:12→22:14)
[2023-05-14] MEDS ORDERED: SODIUM CHLORIDE 0.9% 1,000 ML IV STA (21:14)
[2023-05-14] MEDS ORDERED: NALOXONE 0.4 MG/ML 1 ML VIAL IV PRN (22:36)
[2023-05-14] MEDS ORDERED: ACETAMINOPHEN TAB 325 MG TAB PO PRN (22:36)
[2023-05-14] MEDS ORDERED: ONDANSETRON 4 MG/2 ML VIAL IVP PRN (22:36)
[2023-05-14] MEDS ORDERED: HYDROcodone/APAP 5-325MG 1 EACH TAB PO PRN (22:36)
[2023-05-14] MEDS ORDERED: BACLOFEN 10 MG TAB PO PRN (22:59)
[2023-05-15] MEDS: MORPHINE SULFATE 4 MG/ML SYRINGE IV PRN ×2 (04:53→11:25)
[2023-05-15] MEDS ORDERED: AMINOPHYLLINE 500 MG/20 ML VIAL IV PRN (08:29)
[2023-05-15] MEDS ORDERED: CAFFEINE CITRATE 60 MG/3 ML VIAL IV PRN (08:29)
[2023-05-15] MEDS ORDERED: REGADENOSON 0.4 MG/5 ML SYRINGE IV PRN (08:29)
[2023-05-15] MEDS: ATORVASTATIN 40 MG TAB PO SCH (08:45)
[2023-05-15] MEDS: GABAPENTIN 300 MG CAP PO SCH (08:45)
[2023-05-15] MEDS: amLODIPine 5 MG TAB PO SCH (08:45)
[2023-05-15] MEDS: MELOXICAM 7.5 MG TAB PO SCH (08:45)
[2023-05-15] MEDS: SERTRALINE 50 MG TAB PO SCH (08:45)
[2023-05-15] MEDS: lisinopriL 10 MG TAB PO SCH (08:45)
[2023-05-15] MEDS: PANTOPRAZOLE 40 MG TABLET PO SCH (08:45)
--- NOTE | 2023-05-15 11:07 | P.CRDCN ---
History of Present Illness Consult date: 05/15/23 Consult reason: chest pain History of present illness: History of present illness: This is a 72-year-old male patient of Dr. Brock with past medical history of coronary artery disease with prior stenting of the LAD, hypertension, dyslipidemia, valvular heart disease with aortic and mitral regurgitation, dilated thoracic aorta, carotid atherosclerosis. We have been asked to evaluate the patient for chest pain. Patient states that the football game on Friday, he started feeling funny and he went to bed early. The next morning, patient was to follow-up with the burn center regarding her board that he has to the right foot but he was unable to make the appointment because he did not feel well and had chest pain. He states he also has had difficulty in breathing going on as well and lightheadedness. Chest pain does not seem to be exertional. Patient states that nitroglycerin just makes him sick and does not help his chest pain. He states he has had morphine which seems to help his pain with improvement for about 2 to 3-hours and then the pain returns. After he left the patient's room, his heart rate jumped up to the 120s and 140s. An EKG was obtained but by the time he laid flat in bed, heart rate dropped back down to about 100. EKG sinus rhythm with no acute ST changes Chest x-ray: No acute process CBC is unremarkable. INR 1. D-dimer 0.4. Sodium 132, potassium 4.1, BUN 26 and creatinine 0.97. Blood sugar 103. Magnesium 1.8. Troponin negative x 3. Liver function test are normal. Home cardiac medications: Amlodipine 5 mg daily, Lipitor 40 mg daily, lisinopril 10 mg daily, Maxide 37.5-25 mg daily. Cardiac catheterization performed 07/25/2017 revealed normal coronary angiogram. Patent stent to the mid left anterior descending artery. Echocardiogram performed 10/11/2022 reveals normal EF, moderate MR, mild AR, dilated aorta at 3.9 cm. Lexiscan stress test performed 10/11/2022 was normal. Review Of Systems: At the time of my evaluation: Constitutional: No fever, no chills. No weakness, fatigue or lethargy. EENT: No headache. No dizziness. Lungs: No shortness of breath, cough, no sputum production. No wheezing. Cardiovascular: + chest pain, no lower extremity edema. No palpitations. No paroxysmal nocturnal dyspnea. No orthopnea. No lightheadedness or dizziness. No syncopal episodes. Abdominal: No abdominal pain. No nausea, vomiting. No diarrhea. No constipation. No bloody or tarry stools. Genitourinary: No dysuria.. No urinary retention. Musculoskeletal: No myalgias. No muscle weakness, no frequent falls. No back pain. No neck pain. Integumentary: No wounds. No rash. No unusual bruising. Neurologic: No aphasia. No facial droop. No change in mentation. No head injury. No headache. Physical examination: Gen: This is a [ ] VS: reviewed HEENT: Head is atraumatic, normocephalic. Pupils equal, round. Sclerae is anicteric. NECK: Supple. No JVD. . LUNGS: Clear to auscultation. No wheezes or rhonchi. No intercostal retractions. HEART: Regular rate and rhythm. No murmur. ABDOMEN: Soft No tenderness. EXTREMITIES: No pedal edema. No calf tenderness. NEUROLOGICAL: Patient is awake, alert and oriented x3. Assessment: Atypical chest pain, acute coronary syndrome ruled out by normal troponins Coronary artery disease with prior stenting of the LAD Hypertension Dyslipidemia Valvular heart disease with aortic and mitral regurgitation Dilated thoracic aorta Carotid atherosclerosis Burn right foot Sinus tachycardia Plan: Resume patient's home cardiac medications Schedule patient for Lexiscan stress test today Obtain 2-D echocardiogram and Doppler study to assess cardiac structure and function Patient will be started on Toprol-XL 25 mg daily for sinus tachycardia Further recommendations to follow based upon clinical course Thank you kindly for this consultation. Nurse practitioner note has been reviewed, I agree with documented findings and plan of care. Patient was seen and examined. Past Medical History Past Medical History: Coronary Artery Disease (CAD), Cancer, Chest Pain / Angina, Hyperlipidemia, Hypertension, Osteoarthritis (OA), Pulmonary Embolus (PE), Seizure Disorder Additional Past Medical History / Comment(s): hx head injury,migraines, PE 2009, fx to rt arm/lt foot,chronic back pain, skin ca 2001 ,black stools,last seizure more than 20yrs ago History of Any Multi-Drug Resistant Organisms: None Reported Past Surgical History: Adenoidectomy, Heart Catheterization With Stent, Joint Replacement, Orthopedic Surgery, Tonsillectomy Additional Past Surgical History / Comment(s): Left heart catheterization with PCI about 11 years ago, colonoscopy about 2 years ago was normal. LT FOOT SX MULTIPLE TIMES, RT TKA, BILAT KNEE SX, Right Hip replacement (08/27/2022) rt ankle fx repair. Past Anesthesia/Blood Transfusion Reactions: No Reported Reaction Date of Last Stent Placement:: 2001 Past Psychological History: Anxiety Smoking Status: Never smoker Past Alcohol Use History: None Reported Past Drug Use History: None Reported - Past Family History Mother Family Medical History: No Reported History Father Family Medical History: Coronary Artery Disease (CAD), Myocardial Infarction ([place]) Sister(s) Family Medical History: No Reported History Son(s) Family Medical History: No Reported History Medications and Allergies Home Medications Medication Instructions Recorded Confirmed Type Atorvastatin [Lipitor] 40 mg PO DAILY 01/05/15 05/14/23 History Triamterene/Hydrochlorothiazid 1 tab PO DAILY 01/05/15 05/14/23 History [Maxzide 37.5-25] Gabapentin [Neurontin] 300 mg PO DAILY 06/29/19 05/14/23 History Baclofen 10 mg PO BID PRN 08/23/22 05/14/23 History Celecoxib [CeleBREX] 200 mg PO DAILY 08/23/22 05/14/23 History Sertraline [Zoloft] 50 mg PO DAILY 08/23/22 05/14/23 History LORazepam [Ativan] 1 mg PO TID PRN 05/14/23 05/14/23 History Omeprazole 20 mg PO DAILY 05/14/23 05/14/23 History amLODIPine [Norvasc] 5 mg PO DAILY 05/14/23 05/14/23 History lisinopriL [Zestril] 10 mg PO DAILY 05/14/23 05/14/23 History Allergies Allergy/AdvReac Type Severity Reaction Status Date / Time nitroglycerin AdvReac Nausea & Verified 05/14/23 22:40 Vomiting Physical Exam Vitals: Vital Signs Temp Pulse Resp BP Pulse Ox 05/15/23 06:00 83 13 112/64 97 05/15/23 04:00 137 H 21 109/72 98 05/15/23 02:30 84 18 102/63 97 05/15/23 00:30 73 17 109/64 98 05/14/23 23:30 91 23 122/65 97 05/14/23 23:00 89 17 114/75 98 05/14/23 20:40 110 H 98 05/14/23 15:22 97.4 F L 126 H 18 121/71 97 Intake and Output 05/14/23 05/15/23 05/15/23 22:59 06:59 14:59 Other: Weight 83.915 kg Results 05/14/23 17:12 05/14/23 17:12 Cardiac Enzymes 05/14/23 05/14/23 05/14/23 Range/Units 17:12 17:12 23:42 AST 20 (17-59) U/L Troponin I <0.012 <0.012 (0.000-0.034) ng/mL 05/15/23 Range/Units 03:20 AST (17-59) U/L Troponin I <0.012 (0.000-0.034) ng/mL Coagulation 05/14/23 Range/Units 18:58 PT 10.8 (10.0-12.5) sec APTT 26.3 (22.0-30.0) sec CBC 05/14/23 Range/Units 17:12 WBC 7.1 (3.8-10.6) k/uL RBC 4.62 (4.30-5.90) m/uL Hgb 14.5 (13.0-17.5) gm/dL Hct 42.9 (39.0-53.0) % Plt Count 172 (150-450) k/uL Comprehensive Metabolic Panel 05/14/23 Range/Units 17:12 Sodium 132 L (137-145) mmol/L Potassium 4.1 (3.5-5.1) mmol/L Chloride 100 (98-107) mmol/L Carbon Dioxide 17 L (22-30) mmol/L BUN 26 H (9-20) mg/dL Creatinine 0.97 (0.66-1.25) mg/dL Glucose 103 H (74-99) mg/dL Calcium 10.4 H (8.4-10.2) mg/dL AST 20 (17-59) U/L ALT 17 (4-49) U/L Alkaline Phosphatase 78 (38-126) U/L Total Protein 7.8 (6.3-8.2) g/dL Albumin 4.9 (3.5-5.0) g/dL Current Medications Generic Name Dose Route Start Last Admin Trade Name Freq PRN Reason Stop Dose Admin Acetaminophen 650 mg 05/14/23 22:36 Acetaminophen Tab 325 Mg Tab PO Q6HR PRN Mild Pain or Fever > 100.5 Hydrocodone Bitart/Acetaminophen 1 each 05/14/23 22:36 Hydrocodone/Apap 5-325mg 1 Each Tab PO Q4HR PRN Moderate Pain (Scale 4 to 6) Amlodipine Besylate 5 mg 05/15/23 09:00 Amlodipine 5 Mg Tab PO DAILY [facility] Atorvastatin Calcium 40 mg 05/15/23 09:00 Atorvastatin 40 Mg Tab PO DAILY [facility] Baclofen 10 mg 05/14/23 22:59 Baclofen 10 Mg Tab PO BID PRN Muscle Pain Gabapentin 300 mg 05/15/23 09:00 Gabapentin 300 Mg Cap PO DAILY [facility] Lisinopril 10 mg 05/15/23 09:00 Lisinopril 10 Mg Tab PO DAILY [facility] Lorazepam 1 mg 05/14/23 22:59 Lorazepam 1 Mg Tab PO TID PRN Anxiety Meloxicam 7.5 mg 05/15/23 09:00 Meloxicam 7.5 Mg Tab PO DAILY [facility] Morphine Sulfate 4 mg 05/14/23 22:36 05/15/23 04:53 Morphine Sulfate 4 Mg/Ml Syringe IV 4 mg Q4HR PRN Administration Severe Pain (Scale 7 to 10) Naloxone HCl 0.2 mg 05/14/23 22:36 Naloxone 0.4 Mg/Ml 1 Ml Vial IV Q2M PRN Opioid Reversal Ondansetron HCl 4 mg 05/14/23 22:36 Ondansetron 4 Mg/2 Ml Vial IVP Q8HR PRN Nausea And Vomiting Pantoprazole Sodium 40 mg 05/15/23 07:30 Pantoprazole 40 Mg Tablet PO AC-BRKFST [facility] Sertraline HCl 50 mg 05/15/23 09:00 Sertraline 50 Mg Tab PO DAILY [facility] Triamterene/Hydrochlorothiazide 1 each 05/15/23 09:00 Triamterene-Hctz 37.5-25mg 1 Each Cap PO DAILY [facility] Intake and Output 05/14/23 05/15/23 05/15/23 22:59 06:59 14:59 Other: Weight 83.915 kg 05/14/23 17:12 05/14/23 17:12
[2023-05-15] MEDS: TRIAMTERENE-HCTZ 37.5-25MG 1 EACH CAP PO SCH (11:21)
[2023-05-15] MEDS: METOPROLOL SUCCINATE (ER) 25 MG TAB.ER.24H PO SCH (11:21)
[2023-05-15] MEDS: LORazepam 1 MG TAB PO PRN ×2 (11:33→22:43)
--- NOTE | 2023-05-15 11:58 | NM ---
EXAMINATION TYPE: NM stress lexiscan cardiolite DATE OF EXAM: 05/15/2023 COMPARISON: NONE CLINICAL INDICATION: Male, 72 years old with history of cp; TECHNIQUE: After the intravenous administration of 10.5 mCi Tc 99m Sestamibi - Cardiolite resting SP ECT images acquired 50 minutes post injection. The patient received 0.4mg Lexiscan, 27.1 mCi Tc 99m Sestamibi - Stress images obtained [address] injection FINDINGS: Review of stress and rest SPECT images demonstrates a large area of fixed perfusion defect involving the inferior wall. No discrete reversibility identified. Gated analysis shows normal wall motion thou gh with limited augmentation of the inferior wall and an estimated left ventricular ejection fraction of 64 %. TID calculated at 1.06, upper limits of normal. IMPRESSION: 1. Either extensive diaphragmatic attenuation artifact versus old inferior wall infarct. Further clin ical correlation recommended. 2. No discrete reversibility is identified.
--- NOTE | 2023-05-15 13:25 | P.HPIM ---
History of Present Illness H&P Date: 05/15/23 History of present illness; patient 72-year-old gentleman with past medical hist ory significant for hypertension, hyperlipidemia, coronary artery disease who presented to the ER because of chest pain. Patient stated that he was all right 2 days back when he started noticing chest pain. Central in location, intermittent, nonradiating, aggravated by exertional activities. Denies any palpitation. Complaining of shortness of breath during those episodes. Denies any nausea or vomiting. Denies any abdominal pain. Patient denies any complaint of swelling of feet. Patient states that he is currently no energy because of these episodes of chest pain and is very worried, because of this chest pain, patient came to the ER Initial lab work done in the ER showed WBC 7.1, hemoglobin 14.5, platelet count 172, d-dimer is 0.4, sodium 132, potassium 4.1, BUN 26, creatinine 0.97, glucose 103, calcium 10.4, troponin 0.012 EKG done in the ER showed heart rate of 86, no ST segment elevation or depression seen, no T-wave inversions seen. Chest x-ray done in the ER showed no acute cardiac process Patient admitted to internal medicine service REVIEW OF SYSTEMS: CONSTITUTIONAL: No fever, no malaise, no fatigue. HEENT: No recent visual problems or hearing problems. Denied any sore throat. CARDIOVASCULAR: As mentioned in HPI PULMONARY: As mentioned in HPI GASTROINTESTINAL: No diarrhea, no nausea, no vomiting, no abdominal pain. NEUROLOGICAL: No headaches, no weakness, no numbness. HEMATOLOGICAL: Denies any bleeding or petechiae. GENITOURINARY: Denies any burning micturition, frequency, or urgency. MUSCULOSKELETAL/RHEUMATOLOGICAL: Denies any joint pain, swelling, or any muscle pain. ENDOCRINE: Denies any polyuria or polydipsia. The rest of the 14-point review of systems is negative. PHYSICAL EXAMINATION: GENERAL: The patient is alert and oriented x3, not in any acute distress. Well developed, well nourished. HEENT: Pupils are round and equally reacting to light. EOMI. No scleral icterus. No conjunctival pallor. Normocephalic, atraumatic. No pharyngeal erythema. No thyromegaly. CARDIOVASCULAR: S1 and S2 present. No murmurs, rubs, or gallops. PULMONARY: Chest is clear to auscultation, no wheezing or crackles. ABDOMEN: Soft, nontender, nondistended, normoactive bowel sounds. No palpable organomegaly. MUSCULOSKELETAL: No joint swelling or deformity. EXTREMITIES: No cyanosis, clubbing, or pedal edema. NEUROLOGICAL: Gross neurological examination did not reveal any focal deficits. SKIN: No rashes. Assessment and plan Chest pain, rule out acute coronary syndrome Hypertension Hyperlipidemia Coronary artery disease with prior stenting of the LAD Valvular heart disease with aortic and mitral regurgitation Dilated thoracic aorta Carotid atherosclerosis Burn right foot Sinus tachycardia Monitor vital signs Monitor CBC Monitor CMP Continue telemetry monitoring Trend troponins Ordered 2-D echo order stress test Resume home meds Cardiology consulted Labs and medication were reviewed.. Continue same treatment. Continue with symptomatic treatment. Resume home medication. Monitor labs and vitals. DVT and GI prophylaxis. Further recommendations as per clinical course of the patient Dictation was produced using [employer] dictation software. please excuse any grammatical, word or spelling errors. Past Medical History Past Medical History: Coronary Artery Disease (CAD), Cancer, Chest Pain / Angina, Hyperlipidemia, Hypertension, Osteoarthritis (OA), Pulmonary Embolus (PE), Seizure Disorder Additional Past Medical History / Comment(s): hx head injury,migraines, PE 2009, fx to rt arm/lt foot,chronic back pain, skin ca 2001 ,black stools,last seizure more than 20yrs ago History of Any Multi-Drug Resistant Organisms: None Reported Past Surgical History: Adenoidectomy, Heart Catheterization With Stent, Joint Replacement, Orthopedic Surgery, Tonsillectomy Additional Past Surgical History / Comment(s): Left heart catheterization with PCI about 11 years ago, colonoscopy about 2 years ago was normal. LT FOOT SX MULTIPLE TIMES, RT TKA, BILAT KNEE SX, Right Hip replacement (08/27/2022) rt ankle fx repair. Past Anesthesia/Blood Transfusion Reactions: No Reported Reaction Date of Last Stent Placement:: 2001 Past Psychological History: Anxiety Smoking Status: Never smoker Past Alcohol Use History: None Reported Past Drug Use History: None Reported - Past Family History Mother Family Medical History: No Reported History Father Family Medical History: Coronary Artery Disease (CAD), Myocardial Infarction ([place]) Sister(s) Family Medical History: No Reported History Son(s) Family Medical History: No Reported History Medications and Allergies Home Medications Medication Instructions Recorded Confirmed Type Atorvastatin [Lipitor] 40 mg PO DAILY 01/05/15 05/14/23 History Triamterene/Hydrochlorothiazid 1 tab PO DAILY 01/05/15 05/14/23 History [Maxzide 37.5-25] Gabapentin [Neurontin] 300 mg PO DAILY 06/29/19 05/14/23 History Baclofen 10 mg PO BID PRN 08/23/22 05/14/23 History Celecoxib [CeleBREX] 200 mg PO DAILY 08/23/22 05/14/23 History Sertraline [Zoloft] 50 mg PO DAILY 08/23/22 05/14/23 History LORazepam [Ativan] 1 mg PO TID PRN 05/14/23 05/14/23 History Omeprazole 20 mg PO DAILY 05/14/23 05/14/23 History amLODIPine [Norvasc] 5 mg PO DAILY 05/14/23 05/14/23 History lisinopriL [Zestril] 10 mg PO DAILY 05/14/23 05/14/23 History Allergies Allergy/AdvReac Type Severity Reaction Status Date / Time nitroglycerin AdvReac Nausea & Verified 05/14/23 22:40 Vomiting Physical Exam Vitals: Vital Signs Temp Pulse Pulse Resp BP Pulse Ox 05/15/23 08:33 97.8 F 120 H 120 H 18 121/93 98 05/15/23 08:00 112 H 18 99 05/15/23 06:00 83 13 112/64 97 05/15/23 04:00 137 H 21 109/72 98 05/15/23 02:30 84 18 102/63 97 05/15/23 00:30 73 17 109/64 98 05/14/23 23:30 91 23 122/65 97 05/14/23 23:00 89 17 114/75 98 05/14/23 20:40 110 H 98 05/14/23 15:22 97.4 F L 126 H 18 121/71 97 Intake and Output 05/14/23 05/15/23 05/15/23 22:59 06:59 14:59 Other: Weight 83.915 kg Results CBC & Chem 7: 05/14/23 17:12 05/14/23 17:12 Labs: Abnormal Lab Results - Last 24 Hours (Table) 05/14/23 05/14/23 Range/Units 17:12 17:12 Lymphocytes # 0.9 L (1.0-4.8) k/uL Sodium 132 L (137-145) mmol/L Carbon Dioxide 17 L (22-30) mmol/L BUN 26 H (9-20) mg/dL Glucose 103 H (74-99) mg/dL Calcium 10.4 H (8.4-10.2) mg/dL
[2023-05-16] MEDS: PANTOPRAZOLE 40 MG TABLET PO SCH (06:34)
[2023-05-16] MEDS: GABAPENTIN 300 MG CAP PO SCH (08:47)
[2023-05-16] MEDS: METOPROLOL SUCCINATE (ER) 25 MG TAB.ER.24H PO SCH (08:47)
[2023-05-16] MEDS: TRIAMTERENE-HCTZ 37.5-25MG 1 EACH CAP PO SCH (08:47)
[2023-05-16] MEDS: lisinopriL 10 MG TAB PO SCH (08:47)
[2023-05-16] MEDS: amLODIPine 5 MG TAB PO SCH (08:47)
[2023-05-16] MEDS: ATORVASTATIN 40 MG TAB PO SCH (08:47)
[2023-05-16] MEDS: SERTRALINE 50 MG TAB PO SCH (08:47)
[2023-05-16 09:07] VITALS: BP 111/77; PULSE 70; RESP 14; TEMP 98.1
--- NOTE | 2023-05-16 09:43 | CA ---
Transthoracic Echo Report Name: Ye Reina Age: 72 Gender: M : 1950 Exam Date: 05/15/2023 10:32 Exam Location: [facility] Ht (in): 68 Wt (lb): 185 Ordering Physician: Mar Lane Attending/Referring Phys: [id number], Domingo Roll Capper Bell Funez [facility] Procedure CPT: Indications: LVF Cardiac Hx: Technical Quality: Technically difficult study Contrast 1: Definity Total Dose (mL): 6 Contrast 2: Total Dose (mL): MEASUREMENTS (Male / Female) Normal Values 2D ECHO LV Diastolic Diameter PLAX 5.5 cm 4.2 - 5.9 / 3.9 - 5.3 cm LV Systolic Diameter PLAX 4.0 cm IVS Diastolic Thickness 1.0 cm 0.6 - 1.0 / 0.6 - 0.9 cm LVPW Diastolic Thickness 1.1 cm 0.6 - 1.0 / 0.6 - 0.9 cm LV Relative Wall Thickness 0.4 LVOT Diameter 2.1 cm Ascending Aorta Diameter 3.9 cm M-MODE Aortic Root Diameter MM 3.8 cm LA Systolic Diameter MM 3.5 cm LA Ao Ratio MM 0.9 AV Cusp Separation MM 2.6 cm DOPPLER AV Peak Velocity 148.1 cm/s AV Peak Gradient 8.8 mmHg AV Mean Velocity 86.7 cm/s AV Mean Gradient 3.4 mmHg AV Velocity Time Integral 17.4 cm LVOT Peak Velocity 131.9 cm/s LVOT Peak Gradient 7.0 mmHg LVOT Velocity Time Integral 18.5 cm LVOT Stroke Volume 66.8 cm??? LVOT Stroke Volume Index 33.8 ml/m??? LVOT Cardiac Index 3793.8 cm???/min???m??? AV Area Cont Eq vti 3.8 cm??? AV Area Cont Eq pk 3.2 cm??? Mitral E Point Velocity 47.6 cm/s Mitral A Point Velocity 73.7 cm/s Mitral E to A Ratio 0.6 MV Deceleration Time 175.2 ms LV E' Lateral Velocity 11.9 cm/s Mitral E to LV E' Lateral Ratio 4.0 LV E' Septal Velocity 7.3 cm/s Mitral E to LV E' Septal Ratio 6.5 TR Peak Velocity 229.5 cm/s TR Peak Gradient 21.1 mmHg Right Atrial Pressure 3.0 mmHg Pulmonary Artery Systolic Pressu 24.1 mmHg Right Ventricular Systolic Press 24.1 mmHg FINDINGS Left Ventricle Mildly increased posterior wall thickness. Left ventricular cavity size normal. Normal left ventricular systolic function with no obvious regional wall motion abnormalities. Left ventricular ejection fraction is estimated at 55-60%. Right Ventricle Normal right ventricular size. Right Atrium Normal right atrial size. Left Atrium Mild left atrial dilatation. Mitral Valve Structurally normal mitral valve. No mitral regurgitation. Aortic Valve Trileaflet aortic valve. No aortic valve stenosis or regurgitation. Tricuspid Valve Tricuspid valve not well visualized. Trace tricuspid regurgitation. Pulmonic Valve Pulmonic valve not well visualized. Pericardium No pericardial effusion. Aorta Mild aortic dilatation at the level of the sinuses of valsalva (root). Mildly dilated proximal ascending aorta (tube). CONCLUSIONS Definity ECHO contrast used for improved visualization of the endocardial borders (inadequate visualization of two or more contiguous segments). Normal LV systolic function Poorly visualized intracardiac valves Previewed by: Dr. Marcin Brock MD (Electronically Signed) Final Date: 16 May 2023 09:42
[2023-05-16] MEDS: MELOXICAM 7.5 MG TAB PO SCH (10:50)
--- NOTE | 2023-05-16 10:59 | P.DS ---
Providers Date of admission: 05/14/23 22:37 Expected date of discharge: 05/16/23 Attending physician: Naila Bowen Consults: 05/14/23 22:36 Consult Physician Urgent Consulting Provider: Marcin Brock Consult Reason/Comments: Chest pain Do you want consulting provider notified?: Yes Primary care physician: [facility] Course: Discharge diagnoses; Chest pain, ruled out acute coronary syndrome Hypertension Hyperlipidemia Coronary artery disease with prior stenting of the LAD Valvular heart disease with aortic and mitral regurgitation Dilated thoracic aorta Carotid atherosclerosis Burn right foot Sinus tachycardia Hospital course; patient 72-year-old gentleman with past medical history significant for hypertension, hyperlipidemia, coronary artery disease who presented to the ER because of chest pain. Patient stated that he was all right 2 days back when he started noticing chest pain. Central in location, intermittent, nonradiating, aggravated by exertional activities. Denies any palpitation. Complaining of shortness of breath during those episodes. Denies any nausea or vomiting. Denies any abdominal pain. Patient denies any complaint of swelling of feet. Patient states that he is currently no energy because of these episodes of chest pain and is very worried, because of this chest pain, patient came to the ER Initial lab work done in the ER showed WBC 7.1, hemoglobin 14.5, platelet count 172, d-dimer is 0.4, sodium 132, potassium 4.1, BUN 26, creatinine 0.97, glucose 103, calcium 10.4, troponin 0.012 EKG done in the ER showed heart rate of 86, no ST segment elevation or depression seen, no T-wave inversions seen. Chest x-ray done in the ER showed no acute cardiac process Patient admitted to internal medicine service 05/16. Patient seen and examined. 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 2-D echo done showed normal LV systolic function. Cardiology cleared the patient for discharge. Being discharged on Toprol PHYSICAL EXAMINATION: GENERAL: The patient is alert and oriented x3, not in any acute distress. Well developed, well nourished. HEENT: Pupils are round and equally reacting to light. EOMI. No scleral icterus. No conjunctival pallor. Normocephalic, atraumatic. No pharyngeal erythema. No thyromegaly. CARDIOVASCULAR: S1 and S2 present. No murmurs, rubs, or gallops. PULMONARY: Chest is clear to auscultation, no wheezing or crackles. ABDOMEN: Soft, nontender, nondistended, normoactive bowel sounds. No palpable organomegaly. MUSCULOSKELETAL: No joint swelling or deformity. EXTREMITIES: No cyanosis, clubbing, or pedal edema. NEUROLOGICAL: Gross neurological examination did not reveal any focal deficits. SKIN: No rashes. Dictation was produced using [employer] dictation software. please excuse any grammatical, word or spelling errors. Patient Condition at Discharge: Good Plan - Discharge Summary New Discharge Prescriptions: New Metoprolol Succinate (ER) [Toprol XL] 25 mg PO DAILY 30 Days #30 tab Continue Triamterene/Hydrochlorothiazid [Maxzide 37.5-25] 1 tab PO DAILY Atorvastatin [Lipitor] 40 mg PO DAILY Gabapentin [Neurontin] 300 mg PO DAILY Sertraline [Zoloft] 50 mg PO DAILY Celecoxib [CeleBREX] 200 mg PO DAILY Baclofen 10 mg PO BID PRN PRN Reason: Muscle Pain lisinopriL [Zestril] 10 mg PO DAILY LORazepam [Ativan] 1 mg PO TID PRN PRN Reason: Anxiety Omeprazole 20 mg PO DAILY amLODIPine [Norvasc] 5 mg PO DAILY Discharge Medication List Atorvastatin [Lipitor] 40 mg PO DAILY 01/05/15 [History] Triamterene/Hydrochlorothiazid [Maxzide 37.5-25] 1 tab PO DAILY 01/05/15 [History] Gabapentin [Neurontin] 300 mg PO DAILY 06/29/19 [History] Baclofen 10 mg PO BID PRN 08/23/22 [History] Celecoxib [CeleBREX] 200 mg PO DAILY 08/23/22 [History] Sertraline [Zoloft] 50 mg PO DAILY 08/23/22 [History] LORazepam [Ativan] 1 mg PO TID PRN 05/14/23 [History] Omeprazole 20 mg PO DAILY 05/14/23 [History] amLODIPine [Norvasc] 5 mg PO DAILY 05/14/23 [History] lisinopriL [Zestril] 10 mg PO DAILY 05/14/23 [History] Metoprolol Succinate (ER) [Toprol XL] 25 mg PO DAILY 30 Days #30 tab 05/16/23 [Rx] Follow up Appointment(s)/Referral(s): Juan Francisco Noe MD [Primary Care Provider] - 1-2 days Marcin Brock MD [STAFF PHYSICIAN] - 1 Week Discharge Disposition: HOME SELF-CARE
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
--- NOTE | 2023-05-16 18:27 | CA ---
Lexiscan Nuclear Stress Test Report Name: Ye Reina Exam Date: 05/15/2023 10:15 Exam Location: [facility] Ht (in): 68 Wt (lb): 185 BSA: 1.98 Ordering Phys: Mar Lane Referring Phys: MARCIN BROCK,, Technologist: Kameron Fernandez Age: 72 Gender: M : 1950 Procedure CPT: Indications: Reflex order-Stress test ICD-10 Codes: Patient History: Medications: SEE CHART Meds past 24 hrs: Pretest Chest Pain: STRESS TEST Lexiscan Protocol Exercise Duration (min:sec): 02:[address] Depressions (mm): Angina Score: Gambino Score: Resting HR (bpm): 115 Peak HR (bpm): 130 Resting BP (mmHg): 114 / 71 Peak BP (mmHg): 134 / 67 MPHR: 148 Target HR: 126 % MPHR: 88 METS: 1.0 Total Dose: Peak Dose: Atropine: Double Product: 05178 BP Response: Stress Termination: PROTOCOL COMPLETE Stress Symptoms: NO SYMPTOMS Stress Summary: ECG ANALYSIS Resting ECG: Stress ECG: CONCLUSIONS Nonspecific EKG changes in response to Lexiscan Dr. Marcin Brock MD (Electronically Signed) Final Date: 16 May 2023 18:27
== END 2023-05-16 14:10 | disposition home or self-care (01) ==
LOC: EC 15:21 → 6NMEDSUR 22:37
PROVIDERS: ADMIT Hospitalist; ATTEND Hospitalist
DX: R07.89 Other chest pain (principal); I08.0 Rheumatic disorders of both mitral and aortic valves; I65.29 Occlusion and stenosis of unspecified carotid artery; I77.810 Thoracic aortic ectasia; I25.10 Atherosclerotic heart disease of native coronary artery without angina pectoris; I10 Essential (primary) hypertension; E78.5 Hyperlipidemia, unspecified; G43.909 Migraine, unspecified, not intractable, without status migrainosus; T25.021A Burn of unspecified degree of right foot, initial encounter; Z79.1 Long term (current) use of non-steroidal anti-inflammatories (NSAID); Z79.899 Other long term (current) drug therapy; Z88.8 Allergy status to other drugs, medicaments and biological substances; Z95.5 Presence of coronary angioplasty implant and graft; Z86.711 Personal history of pulmonary embolism; Z82.49 Family history of ischemic heart disease and other diseases of the circulatory system
CPT/HCPCS: 96376 ×2; 96361; 96374; 99285; 36415; 94760; 93005 ×2; 93017; 85379; 80053; 83735; 84484 ×2; 85025; 85610; 85730; 71046; 78452; G0378 ×3; C8929; A9500; J2270 ×2; Q9957; J2785; 93306